=== PATIENT | male | born 1965 | race Caucasian/White ===

== ENCOUNTER 2016-08-14 21:27 | Emergency (ER) | payer OTHER ==
[2016-08-14] MEDS ORDERED: Aspirin Low Dose CHEW TAB* 81 MG PO ONE (21:43)
[2016-08-14 21:59] LABS: Hematocrit 43 % (42-52); Hemoglobin 14.7 g/dl (14.0-18.0); Mean Corpuscular HGB Conc 35 g/dl (31-36); Mean Corpuscular Hemoglobin 33 pg (27-31); Mean Corpuscular Volume 97 fL (80-94); Mean Platelet Volume 8 um3 (7.4-10.4); Red Cell Distribution Width 13 % (10.5-15); White Blood Count 9.5 10^3/ul (3.5-10.8)
[2016-08-14 22:14] LABS: Albumin 4.1 g/dL (3.2-5.2); BUN/Creatinine Ratio 9.8 (8-20); Calcium 9.5 mg/dL (8.6-10.3); EGFR African American 98.6 (>60); EGFR Non-African American 76.7 (>60); Globulin 3.8 g/dL (2-4); Potassium 3.8 mmol/L (3.5-5.0); Total Bilirubin 0.5 mg/dL (0.2-1.0); Total Protein 7.9 g/dL (6.4-8.9)
--- NOTE | 2016-08-14 22:21 | RAD ---
INDICATION: Chest pain. Atrial fibrillation. COMPARISON: May 03, 2013 TECHNIQUE: Dual energy PA and routine lateral views of the chest were obtained. REPORT: Upper normal heart size. Prominent ill-defined central pulmonary vasculature with mild perihilar opacities and diffuse prominence of the interstitial markings. Grossly clear pleural spaces. Negative for pneumothorax. IMPRESSION: Pulmonary vascular congestion and interstitial edema.
--- NOTE | 2016-08-14 22:30 | ED ---
Samanta Gerardo Matthew, scribed for Michael Quick MD on 08/14/16 at 2144 . HPI Chest Pain - HPI Summary HPI Summary: A 50 y/o male presents to the ED with intermittent mid-sternal chest pain since 15:30. The pain is rated 2/10 in severity and described as tightness. The pain started while the patient was pulling fence posts from his yard. He attempt to eat dinner and had episodes of staring off and wouldn't responded to questions, which he's had in the past. While in the EMS, the nitroglycerin improved the pain. He takes an aspirin daily. 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 He waited until now to call EMS, because he thought the pain would go away from his Hx of angina. He also had a cardiac catheterization in 2005. - History of Current Complaint Time Seen by Provider: 08/14/16 21:36 Hx Obtained From: Patient Onset/Duration: Started Hours Ago, Atraumatic, Still Present Time of Onset: 15:30 Timing: Constant Initial Severity: Moderate Current Severity: Moderate Pain Intensity: 2 Pain Scale Used: 0-10 Numeric Chest Pain Location: Mid Sternal Character: Tightness Aggravating Factor(s): Exertion Alleviating Factor(s): NTG 123 Associated Signs and Symptoms: Positive: Chest Pain - Allergy/Home Medications Allergies/Adverse Reactions: Allergies Allergy/AdvReac Type Severity Reaction Status Date / Time Latex Allergy Unknown Difficulty Verified 02/05/16 12:24 Breathing/Wheezing Home Medications: Home Medications Torsemide TAB* [Demadex*] 20 mg PO DAILY 08/14/16 [History Confirmed 08/14/16] PMH/Surg Hx/FS Hx/Imm Hx Endocrine/Hematology History: Denies: Hx Anticoagulant Therapy, Hx Diabetes, Hx Thyroid Disease Cardiovascular History: Reports: Hx Congestive Heart Failure, Hx Hypercholesterolemia Denies: Hx Hypertension, Hx Pacemaker/ICD, Hx Syncope - no hx - 1st episode, Other Cardiovascular Problems/Disorders Respiratory History: Reports: Hx Chronic Obstructive Pulmonary Disease (COPD), Hx Sleep Apnea Denies: Hx Asthma, Hx Seasonal Allergies GI History: Reports: Other GI Disorders - ventral hernia Denies: Hx Cirrhosis, Hx Crohn's Disease, Hx Gall Bladder Disease, Hx Irritable Bowel, Hx Ulcer History: Denies: Hx Kidney Infection, Hx Kidney Stones, Hx Renal Disease Musculoskeletal History: Denies: Hx Arthritis, Hx Back Problems, Hx Gout Sensory History: Reports: Hx Vision Problem - (left) eye vision loss Denies: Hx Contacts or Glasses, Hx Deafness Opthamlomology History: Reports: Hx Vision Problem - (left) eye vision loss Denies: Hx Contacts or Glasses Neurological History: Denies: Hx Dementia, Hx Headaches, Hx Migraine, Hx Seizures Psychiatric History: Denies: Hx Anxiety, Hx Depression, Hx Post Traumatic Stress Disorder, Hx Bipolar Disorder, Hx Suicide Attempt, Hx Substance Abuse - Surgical History Surgery Procedure, Year, and Place: 11/29/09 incarcerated ventral hernia - Immunization History Date of Tetanus Vaccine: 2011 Date of Influenza Vaccine: no Infectious Disease History: Denies: Hx Clostridium Difficile, Hx Hepatitis, Hx Human Immunodeficiency Virus (HIV), Hx of Known/Suspected MRSA, Hx Shingles, Hx Tuberculosis, Hx Known/ Suspected VRE, Hx Known/Suspected VRSA, History Other Infectious Disease - Family History Known Family History: Positive: Hypertension - Social History Alcohol Use: None Substance Use Type: Reports: None Smoking Status (MU): Heavy Every Day Tobacco Smoker Type: Cigarettes Amount Used/How Often: 1/2 ppd Length of Time of Smoking/Using Tobacco: 30 years Have You Smoked in the Last Year: Yes Review of Systems Constitutional: Negative Eyes: Negative ENT: Negative Positive: Chest Pain Respiratory: Negative Gastrointestinal: Negative Genitourinary: Negative Musculoskeletal: Negative Skin: Negative Neurological: Negative Psychological: Normal All Other Systems Reviewed And Are Negative: Yes Physical Exam Vital Signs On Initial Exam: Initial Vitals Temp Pulse Resp BP Pulse Ox 99.0 F 78 16 107/67 95 08/14/16 21:44 08/14/16 21:44 08/14/16 21:44 08/14/16 21:44 08/14/16 21:44 Diagnostics - Vital Signs Vital Signs Temp Pulse Resp BP Pulse Ox 08/14/16 22:20 89 08/14/16 21:44 99.0 F 78 16 107/67 95 - Laboratory Lab Results: Lab Results 08/14/16 08/14/16 08/14/16 Range/Units 21:50 21:50 21:50 WBC 9.5 (3.5-10.8) 10^3/ul RBC 4.40 (4.0-5.4) 10^6/ul Hgb 14.7 (14.0-18.0) g/dl Hct 43 (42-52) % MCV 97 H (80-94) fL MCH 33 H (27-31) pg MCHC 35 (31-36) g/dl RDW 13 (10.5-15) % Plt Count 211 (150-450) 10^3/ul MPV 8 (7.4-10.4) um3 Neut % (Auto) 46.5 (38-83) % Lymph % (Auto) 42.5 (25-47) % [place] % (Auto) 9.2 H (1-9) % Eos % (Auto) 0.9 (0-6) % Baso % (Auto) 0.9 (0-2) % Absolute Neuts (auto) 4.4 (1.5-7.7) 10^3/ul Absolute Lymphs (auto) 4.0 (1.0-4.8) 10^3/ul Absolute Monos (auto) 0.9 H (0-0.8) 10^3/ul Absolute Eos (auto) 0.1 (0-0.6) 10^3/ul Absolute Basos (auto) 0.1 (0-0.2) 10^3/ul Absolute Nucleated RBC 0 10^3/ul Nucleated RBC % 0 INR (Anticoag Therapy) (0.89-1.11) Sodium 131 L (133-145) mmol/L Potassium 3.8 (3.5-5.0) mmol/L Chloride 96 L (101-111) mmol/L Carbon Dioxide 25 (22-32) mmol/L Anion Gap 10 (2-11) mmol/L BUN 10 (6-24) mg/dL Creatinine 1.02 (0.67-1.17) mg/dL Est GFR ( Amer) 98.6 (>60) Est GFR (Non-Af Amer) 76.7 (>60) BUN/Creatinine Ratio 9.8 (8-20) Glucose 140 H (70-100) mg/dL Lactic Acid 2.5 H* (0.5-2.0) mmol/L Calcium 9.5 (8.6-10.3) mg/dL Magnesium 2.0 (1.9-2.7) mg/dL Total Bilirubin 0.50 (0.2-1.0) mg/dL AST 18 (13-39) U/L ALT 19 (7-52) U/L Alkaline Phosphatase 107 H (34-104) U/L Troponin I 0.00 (<0.04) ng/mL Total Protein 7.9 (6.4-8.9) g/dL Albumin 4.1 (3.2-5.2) g/dL Globulin 3.8 (2-4) g/dL Albumin/Globulin Ratio 1.1 (1-3) 08/14/16 Range/Units 21:50 WBC (3.5-10.8) 10^3/ul RBC (4.0-5.4) 10^6/ul Hgb (14.0-18.0) g/dl Hct (42-52) % MCV (80-94) fL MCH (27-31) pg MCHC (31-36) g/dl RDW (10.5-15) % Plt Count (150-450) 10^3/ul MPV (7.4-10.4) um3 Neut % (Auto) (38-83) % Lymph % (Auto) (25-47) % [place] % (Auto) (1-9) % Eos % (Auto) (0-6) % Baso % (Auto) (0-2) % Absolute Neuts (auto) (1.5-7.7) 10^3/ul Absolute Lymphs (auto) (1.0-4.8) 10^3/ul Absolute Monos (auto) (0-0.8) 10^3/ul Absolute Eos (auto) (0-0.6) 10^3/ul Absolute Basos (auto) (0-0.2) 10^3/ul Absolute Nucleated RBC 10^3/ul Nucleated RBC % INR (Anticoag Therapy) 0.99 (0.89-1.11) Sodium (133-145) mmol/L Potassium (3.5-5.0) mmol/L Chloride (101-111) mmol/L Carbon Dioxide (22-32) mmol/L Anion Gap (2-11) mmol/L BUN (6-24) mg/dL Creatinine (0.67-1.17) mg/dL Est GFR ( Amer) (>60) Est GFR (Non-Af Amer) (>60) BUN/Creatinine Ratio (8-20) Glucose (70-100) mg/dL Lactic Acid (0.5-2.0) mmol/L Calcium (8.6-10.3) mg/dL Magnesium (1.9-2.7) mg/dL Total Bilirubin (0.2-1.0) mg/dL AST (13-39) U/L ALT (7-52) U/L Alkaline Phosphatase (34-104) U/L Troponin I (<0.04) ng/mL Total Protein (6.4-8.9) g/dL Albumin (3.2-5.2) g/dL Globulin (2-4) g/dL Albumin/Globulin Ratio (1-3) Result Diagrams: 08/14/16 21:50 08/14/16 21:50 Lab Statement: Any lab studies that have been ordered have been reviewed, and results considered in the medical decision making process. - Radiology CXR Xray Interpretation: Positive (See Comments) - IMPRESSION: Pulmonary vascular congestion and interstitial edema. Radiology Interpretation Completed By: Radiologist Chest Pain Course/Dx - Diagnoses Provider Diagnoses: Chest pain Discharge - Discharge Plan Condition: Stable Disposition: HOME Patient Education Materials: Chest Pain (ED) Referrals: Jamel Gamez MD [Primary Care Provider] - 2 Days Additional Instructions: Please follow-up with your forest nursery supervisor in 2 days. The documentation as recorded by the Samanta love Matthew accurately reflects the service I personally performed and the decisions made by me, Michael Quick MD.
[2016-08-15 01:39] VITALS: BP 133/90
== END 2016-08-15 01:40 | disposition home or self-care (01) ==
LOC: ED 21:27
DX: R07.9 Chest pain, unspecified (principal); I50.9 Heart failure, unspecified; E78.00 Pure hypercholesterolemia, unspecified; J44.9 Chronic obstructive pulmonary disease, unspecified; F17.210 Nicotine dependence, cigarettes, uncomplicated
CPT/HCPCS: 36415; 71020; 80053; 83605; 83735; 83880; 84484; 85025; 85610; 93005; 99283

== ENCOUNTER 2017-02-16 11:26 | Day surgery (SDC) | payer OTHER ==
--- NOTE | 2017-02-08 17:51 | HP ---
CC: Dr. 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 HISTORY OF PRESENT ILLNESS: Mr. Kessler is a pleasant 51-year-old gentleman who is well known to our practice for multiple followup visits at the wound clinic. The patient has a longstanding history of chronic venous stasis ulcer on both legs for which he has been followed up by the wound clinic with multiple visits in the past couple of years. The patient presented to his primary care physician about a month ago and during examination, he was found to have a skin lesion on his abdominal wall at midline. The patient apparently had this skin lesion for quite few years now, reports occasional bleeding from especially after itching there. He has known history of itching and picking on his both lower extremities and abdominal wall due to history of eczema with occasional skin breakdown and bleeding. He notes that his skin lesion on the abdominal wall has gotten progressively bigger in the last year or so and experienced delayed healing when it bleeds. The patient was seen by Dr. Comer last week and had a skin biopsy of that lesion that unfortunately came back revealing evidence of squamous cell carcinoma. The patient notes that he works a lot outside especially in the summer-time in his garden and mowing his grass. He denies any history of melanoma or other skin lesion in the past. Given the pathology findings of squamous cell carcinoma that was well differentiated, we offered him proceeding with wide excision of the skin lesion to be done in the operating room on a later date. The patient presented to the office today to discuss surgery. He denies any significant changes since his last office visit. He notes that his lower extremity edema has been bothering him lately despite the use of diuretics and compression stockings. PAST MEDICAL HISTORY: Significant for a chronic venous stasis ulcer and bilateral lower extremity edema. He also had history of hypertension, thyroid disease, atrial fibrillation, chronic obstructive pulmonary disease, hyperlipidemia, peripheral vascular disease, and coronary artery disease. PAST SURGICAL HISTORY: Significant for cardiac catheterization as well as ventral incisional hernia repair in the remote past. The patient also explained that he was born with webbed fingers and toes for which he had a total of 12 or 13 surgeries between the age of 6 months and 10 years to separate them all. CURRENT MEDICATIONS: His medications at home include: 1. Hydrochlorothiazide 25 mg p.o. daily. 2. Singulair 10 mg p.o. daily. 3. Diltiazem 120 mg p.o. daily. 4. Hydrocortisone cream 2.5% apply to affected areas b.i.d. 5. Cartia XT 300 mg p.o. daily. 6. Atorvastatin 40 mg p.o. q.h.s. 7. Levothyroxine 150 mcg p.o. daily. 8. Torsemide 20 mg p.o. daily. 9. Terbinafine 250 mg 1 tablet once daily. 10. Latanoprost 0.005% eye drops apply to both eyes q.h.s. 11. ProAir inhaler 180 mcg once daily. 12. Valacyclovir 1 g 1 tablet t.i.d. ALLERGIES: He is allergic to LATEX. FAMILY HISTORY: He denies any family history of melanoma or other skin cancer. SOCIAL HISTORY: The patient continued to smoke about half a pack per day. He is currently working at [employer], works mostly outdoors. He lives with his girlfriend. He consumes alcohol occasionally and denies illicit drug use. REVIEW OF SYSTEMS: See HPI. Otherwise, negative. He denies any headache, dizziness, blurred vision, or double vision. No chest pain, palpitation, or shortness of breath. No cough, wheezing, sore throat. No back pain, flank pain , dysuria, hematuria, or urinary frequency. He admits to increased edema of the lower extremity, but denies any calf pain or history of DVT. No nausea, vomiting, abdominal pain, or changes in the bowel habits. He denies any fever, chills, night sweats, or recent weight loss. PHYSICAL EXAMINATION GENERAL: He is a pleasant morbidly obese gentleman, in no acute distress or discomfort today. VITAL SIGNS: Revealed blood pressure of 146/78, pulse of 84, temperature of 97.5. He weighs 350 pounds over a 5-feet 10-inch frame with a BMI of 50. HEENT: Sclerae anicteric. PERRLA. EOMs intact. Oropharynx is pink, moist with no exudate. NECK: Supple. Trachea midline. No cervical adenopathy, thyromegaly, or JVD. LUNGS: Clear to auscultation bilaterally. No rales, wheezes, or rhonchi. HEART: Regular rate and rhythm. Normal S1 and S2 without rubs, murmurs, or gallops. BACK: With normal curvature. No CVA tenderness. ABDOMEN: Soft, nontender, and nondistended. There is a small umbilical hernia noted on the examination that seems to be reducible and not incarcerated. There are old scars from prior ventral hernia repair at the lower midline. There is a skin lesion at midline alf between the umbilicus and xiphoid process that measured approximately 5 cm long x 2 to 3 cm wide with small healing scab on the other portion from prior biopsy. The area is nontender on palpation. There is no evidence of active bleeding or discharge. There is no surrounding erythema or induration. No other masses or lesions noted. RECTAL: Deferred at this time. EXTREMITIES: There is 3+ bilateral lower extremity edema noted with healing multiple chronic venous stasis ulcers at different stages of healing. There is no evidence of cellulitis, erythema, or induration noted. NEUROLOGIC: Grossly intact. IMPRESSION: A 51-year-old gentleman with biopsy-proven squamous cell carcinoma of abdominal wall. PLAN: The patient is scheduled for a wide excision of squamous cell carcinoma of the abdomen to be performed by Dr. Comer on 02/16/17. The patient was seen and examined by Dr. Comer as well. We discussed with him the rationale, indications, risks, and benefits of surgery. Risks include, but not limited to, infection, bleeding, or injury to adjacent structures. We also discussed with him getting a frozen section to assure getting a clean margin, so it would hopefully eliminate need for any reexcision in future. We also discussed with him the challenges of wound healing given his morbid obesity and possible need to wear an abdominal binder for an extended period of time until we approach complete healing of the wound. He seems to understand and wishes to proceed as outlined. SHAYLA SÁNCHEZ [id number]/[facility] #: [id number] [facility] HOSPITALKimberly
[2017-02-16] MEDS ORDERED: Bupivacaine 0.5% SDV PF* 30 ML VIAL ONE (13:09)
[2017-02-16] MEDS ORDERED: Lidocaine 1% INJ* 10 MG/ML 30 ML SDV ONE (13:09)
[2017-02-16] MEDS ORDERED: Lidocaine 1.5% EPI 1:200,000* 30 ML SDV ONE (13:26)
[2017-02-16] MEDS ORDERED: Acetaminophen TAB* 325 MG PO PRN (15:09)
[2017-02-16] MEDS ORDERED: Ibuprofen TAB* 600 MG PO PRN (15:09)
[2017-02-16 15:22] VITALS: BP 141/90
--- NOTE | 2017-02-17 05:47 | OP ---
CC: [facility]; Wound Center; Dr. Jamel Gamez OPERATIVE REPORT: DATE OF OPERATION: 02/16/17 DATE OF : 61 SURGEON: Estevan oCmer MD SLIDE FORMING MACHINE TENDER: None. ANESTHESIA: Local. PRE-OP DIAGNOSIS: Abdominal skin squamous cell carcinoma. POST-OP DIAGNOSIS: Abdominal skin squamous cell carcinoma. OPERATIVE PROCEDURE: Wide excision of squamous cell carcinoma of the abdomen with frozen section. ESTIMATED BLOOD LOSS: Minimal. FLUIDS: No fluids. SPECIMEN: Portion of abdominal skin. DESCRIPTION OF PROCEDURE: Mr. Kessler was identified in the preoperative area. He was marked, maame t to the operating room, placed on the operating table in the supine position. Patient's abdomen was prepped with Betadine and draped sterilely and the time-out was performed. Injection of lidocaine 1% with epinephrine around the proposed incision site was carried out. The in cision was measured off the lesion itself that had been biopsied previously and was consistent with s quamous cell carcinoma, was noted to be a 3 x 3 cm lesion that was in the upper midline. Elliptical area chosen was approximately 10 x 3.5 cm after injection of lidocaine along this elliptical area. Th is ellipse was carried out. The skin was removed with scalpel in its entirety. The lesion was then m arked at 12 o'clock and sent down to Pathology where it underwent frozen section. The skin was undermined laterally. Flaps were made approximately 3 cm on both sides. When we heard that there were negative margins under the frozen section, the incision was primarily closed after th e undermining with 3-0 nylon sutures in a mattress fashion. Sterile dressing was applied followed by an abdominal binder. Patient tolerated the procedure well and was transferred to the PACU in stable condition. [id number]/[facility] #: [id number]
== END 2017-02-16 15:24 | disposition home or self-care (01) ==
LOC: OR 11:26
PROVIDERS: ATTEND Surgery
DX: C44.529 Squamous cell carcinoma of skin of other part of trunk (principal); I87.8 Other specified disorders of veins; I83.012 Varicose veins of right lower extremity with ulcer of calf; I83.022 Varicose veins of left lower extremity with ulcer of calf; F17.210 Nicotine dependence, cigarettes, uncomplicated; I10 Essential (primary) hypertension; J44.9 Chronic obstructive pulmonary disease, unspecified; I48.91 Unspecified atrial fibrillation; E78.5 Hyperlipidemia, unspecified; I73.9 Peripheral vascular disease, unspecified; I25.10 Atherosclerotic heart disease of native coronary artery without angina pectoris; E07.9 Disorder of thyroid, unspecified
CPT/HCPCS: 88305; 88331; 88332; J2001

== ENCOUNTER 2017-05-08 08:30 | Observation (INO) | payer OTHER ==
[2017-05-08 09:34] LABS: EGFR Non-African American 90.6 (>60)
[2017-05-08 09:42] LABS: ABS Basophils 0 10^3/ul (0-0.2); ABS Eosinophils 0.1 10^3/ul (0-0.6); ABS Lymphocytes 1.3 10^3/ul (1.0-4.8); ABS Monocytes 0.8 10^3/ul (0-0.8); ABS Neutrophils 12.2 10^3/ul (1.5-7.7); ABS Nucleated RBC 0 10^3/ul; Eosinophil % 0.4 % (0-6); Hematocrit 41 % (42-52); Hemoglobin 14.1 g/dl (14.0-18.0); Mean Corpuscular HGB Conc 34 g/dl (31-36); Mean Corpuscular Hemoglobin 33 pg (27-31); Mean Corpuscular Volume 97 fL (80-94); Mean Platelet Volume 8 um3 (7.4-10.4); Nucleated Red Blood Cells % 0.1; Platelet Count 218 10^3/ul (150-450); Red Blood Count 4.28 10^6/ul (4.0-5.4); Red Cell Distribution Width 14 % (10.5-15); White Blood Count 14.3 10^3/ul (3.5-10.8)
[2017-05-08] MEDS ORDERED: Piperacillin/Tazobac ADVAN(*) 3.375 GM in NS 0.9% 100 ML* 100 ML IVPB ONE (09:52)
[2017-05-08 10:07] LABS: Urine Appearance Clear; Urine Blood Negative (Negative); Urine Color Yellow; Urine Ketones Negative (Negative); Urine Protein Negative (Negative); Urine Specific Gravity 1.021 (1.010-1.030); Urine Urobilinogen Negative (Negative)
[2017-05-08] MEDS ORDERED: Albuterol 2.5 MG/3 ML NEB.SOL* (0.083%) INH PRN (12:34)
[2017-05-08] MEDS ORDERED: Zosyn per Pharmacy* NOTE FOLLOW UP SCH (13:00)
[2017-05-08] MEDS ORDERED: Spiriva Inhaler DEVICE* 1 EACH DEVICE SCH (13:00)
[2017-05-08] MEDS ORDERED: Piperacillin/Tazobactam 13.5 GM IV 24 hour continuous infusion IVPB SCH ×2 (15:00)
[2017-05-08] MEDS: Heparin VIAL(*) 5000 UNITS/ML VIAL (FIVE THOUSAND) SUBCUT SCH ×2 (15:21→21:04)
[2017-05-08] MEDS ORDERED: ALPRAZolam TAB* 0.25 MG PO PRN (17:32)
[2017-05-08] MEDS: Clindamycin 600 MG IVPREMIX(* 600 MG/50 ML SDV IV SCH (18:05)
[2017-05-08] MEDS: Tiotropium CAP.INH* CAP.INH/18 MCG (USE ORDER SET !) INH SCH (18:57)
--- NOTE | 2017-05-08 20:05 | HP ---
AMENDED REPORT NOW INCLUDES COSIGNER DESIGNATION - ESIGNED BEFORE ADJUSTMENT ADMISSION HISTORY AND PHYSICAL: DATE OF ADMISSION: 05/08/17 PRIMARY CARE PROVIDER: Jamel Gamez MD ATTENDING AND ADMITTING FOR THIS ADMISSION: Nancy Johnston MD * (DICTATED BY NATALIIA MERCADO NP) CHIEF COMPLAINT: Right lower extremity wound. HISTORY OF PRESENT ILLNESS: This is a very pleasant 51-year-old male patient who has a longstanding history of right lower extremity wounds vascular in nature, has been treating with Dr. Saravia and also with the wound clinic and also had seen several dermatologists including Dr. Schroeder in the past. He has been diagnosed with eczema and psoriasis of the upper extremities, but also with vasculitis and venous stasis ulcers of the right lower extremity. The patient did have a fall-off in care and perhaps some noncompliance with his recommended regimen. Was in a Unna boot on and off, but also I think had some compliance issues with them. The patient reports having put his Unna boot on and was supposed to keep it on until ; however, the patient states that he wanted to take a shower and removed the Unna boot and when he took it off this morning, realized that the wounds on the right lower extremity looked significantly worse. He became startled by how they looked. The skin was really excoriated. He decided to come to the emergency department for evaluation because the pain had increased and the wounds became significantly worse. PAST MEDICAL HISTORY: 1. Chronic lower extremity venous stasis ulcers and bilateral lower extremity edema. 2. He also has history of atrial fibrillation. 3. Hypertension. 4. COPD. 5. Hyperlipidemia. 6. Peripheral vascular disease. 7. Coronary artery disease. 8. Obstructive sleep apnea. PAST SURGICAL HISTORY: 1. Ventral hernia repair. 2. Multiple surgeries on his fingers and toes as child for webbed fingers and toes. 3. 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 Comer. HOME MEDICATIONS: 1. Atorvastatin 40 mg daily. 2. Diltiazem 360 mg daily. 3. Levothyroxine 150 mcg daily. 4. Singulair 10 mg in the evening. 5. Prednisone 60 mg daily. 6. Torsemide 20 mg daily. ALLERGIES: He has an allergy to LATEX. FAMILY HISTORY: Significant for mother with diabetes mellitus and a sister with renal disease. SOCIAL HISTORY: The patient is a daily smoker, half a pack per day since age of 16. Also a daily consumption of alcohol of a 12-pack of beer per day. Denies any illicit drug use. He does work fulltime, works at [employer]. Lives at home with his girlfriend who is also his medical healthcare proxy, her name is Anisha Mckeon. Code status, the patient is a full code. REVIEW OF SYSTEMS: The patient denies having any fever, fatigue, or headache. No fevers or chills. No acute weight loss reported. Reports no anorexia. No nausea, vomiting, or diarrhea. No abdominal change. No changes in bowel habits. Positive cough, productive of yellow sputum intermittently. No sore throat. Reports no wheezing. No chest pain. Does state that he has a significant amount of itching to the right and left upper extremities with some open wounds and significant amount of itching on the right lower extremity. He does report having picked at his wounds and making them worse. Denies any calf pain on the contralateral side. Denies any night sweats. Denies any sick contacts. PHYSICAL EXAMINATION GENERAL: The patient is awake and alert, mildly anxious at baseline. VITAL SIGNS: Currently, temperature 97.8, pulse rate 88, respiratory rate 22, room air sat is 93%, blood pressure is 148/84. HEENT: The patient is atraumatic, normocephalic. PERRLA with nonicteric sclerae. NECK: Supple. Nontender. No JVD noted. No thyromegaly appreciated. No carotid bruit auscultated. LUNGS: Diminished throughout the lung larios. He has audible bilateral expiratory wheeze. No rales or rhonchi appreciated. CARDIOVASCULAR: S1, S2 are present. Rate and rhythm are currently regular. No murmurs, gallops, or rubs appreciated. ABDOMEN: Soft, nontender, nondistended, obese. Has an approximated surgical wound healed, has some scabbing and some rash-like maculopapular in nature appearances throughout the abdomen. Skin did not appear to be broken, rather erythematous in nature. Has positive bowel sounds in all 4 quadrants. : Deferred. MUSCULOSKELETAL: There is a significant amount of clubbing on the fingers; however, it is difficult to tell if this is true clubbing or secondary to the multiple surgeries he had for the webbing of his fingers. This is also present on his toes. He does have radial pulses intact. I was not able to palpate distal pulses though, and his pedal pulses secondary to his edema. SKIN: He has gotten multiple scabbed over wounds and some, again maculopapular rash-like lesions of the upper extremities in various stages of healing. Also some on the left extremity. On the right lower extremity from about the knee down, the skin is greatly excoriated circumferentially, almost looks burn like in quality with a significant amount of slough and some yellow exudate. Does not appear to be pus, but does appear to be draining, extremely erythematous. Again, difficulty palpating a pulse. Also has wound of the left heel. NEUROLOGIC: He is grossly intact with no focal deficits. PSYCHIATRIC: He is cooperative, anxious, but appropriate. LABORATORY DATA: WBC 14.3, RBC 4.28, hemoglobin 14.1, hematocrit 41, MCV 97, MCH 33, MCHC 34, RDW 14, platelets 218,000, neutrophils 84.9, lymphocytes 9.0, absolute neutrophils 12.2. ESR is 42. Sodium 133, potassium 4.0, chloride 98, carbon dioxide 27, BUN 15, creatinine 0.88, GFR is 90.6, glucose 202. Lactic acid 2.5. Uric acid 7.6. Calcium 9.4. Bilirubin 0.4, AST 17, ALT 19, alk phos 131. CRP 9.33. Total protein 8.2. Albumin 4.0, globulin 4.2. Urinalysis is negative for any infectious process, does show 1+ glucose. IMAGING: The patient did have venous Doppler done back in February, not at this admission. Again, he was following with Dr. Saravia. Had venous Doppler showing significant venous insufficiency. Venous insufficiency portion exam showed significant reflex in the proximal great saphenous on the left and small saphenous distally with reflex of 3.4 seconds. Vessel diameters are 0.4, 0.2 cm respectively. There was more significant reflex on the right. On the right , there is significant reflex in the great saphenous from its mid portion of the calf measuring up to 3.5 seconds and there is also significant reflex in the mid and distal small saphenous measuring up to 2.3 cm. Vessel diameters in the great saphenous measure up to 0.8 cm and in the small saphenous 0.3 cm. IMPRESSION: This is a 51-year-old male patient with a history of peripheral vascular disease, paroxysmal atrial fibrillation, hypertension, chronic obstructive pulmonary disease, and squamous cell carcinoma who presented to the emergency department with an ongoing chronic wound at the right lower extremity. Call was placed by the ED physician, Dr. Mobley to Dr. Saravia, the patient's vascular surgeon who reports that the patient at this point has failed more conservative measures and feels that inpatient admission with antibiotics and consult with Infectious Disease and wound care here in the hospital would better benefit this patient. As such, he will be admitted inpatient. DIAGNOSES: 1. Vasculitis, eczema, and vascular insufficiency. 2. History of atrial fibrillation, paroxysmal in nature. 3. History of hypertension. 4. Impaired glucose. 5. Chronic obstructive pulmonary disease and current every day smoker. 6. History of squamous cell carcinoma with excision. 7. Current history of excessive EtOH intake. PLAN: We have consulted Infectious Disease. The patient has already gotten 1 dose of Zosyn. We have consulted wound care service to care for the leg wound and also the eczematous type wounds. Of significant note is the patient had ABIs done last month, which were also impaired and his vascular surgeon is aware of this. I do not feel the need to do a Doppler again. He had one last month, which showed no clot and it just showed his current venous insufficiency , so I do not feel it is necessary to do that at this point. We will continue him on Zosyn until we receive further recommendations from Infectious Disease at this point and also recommendations from the wound care nurse. For his atrial fibrillation, his diltiazem, which is increased to 360 mg daily, which will also control his hypertension. For his impaired glucose, I have done an A1c. We will check his labs in the morning as well. For his chronic obstructive pulmonary disease, the patient is only taking Singulair and not on any nebulizers, I started him on Spiriva. He does have a significant wheeze and on albuterol every 4 hours. His history of squamous cell carcinoma is at baseline and stable at this point. For his ETOH and also for his smoking, I had a conversation with the patient about impaired wound healing with alcohol consumption and continued tobacco abuse. The patient was counseled on this. I do not think the patient will be at risk for delirium tremens, so I do not feel putting him on a WAM protocol at this point would be necessary; however, if he does show signs of any kind of withdrawal, then we will place him on WAM at this point, though I think a low dose xanax would be helpful. He has a great amount of fear about losing his job secondary to admission. For obstructive sleep apnea, the patient is on BiPAP at night. I have requested the patient to bring his BiPAP from home to use. The patient is a full code. He can have a low-sodium dinner. The patient 's significant other, Anisha Mckeon, is his healthcare proxy and decision maker. TIME SPENT: I have spent an excess of 60 minutes on this admission, face-to- face with the patient, also with Dr. Mobley and I discussed this plan of care with Dr. Nancy Johnston who is the attending on this case. The rest of the patient's course will be determined by further diagnostics, laboratories, and any other input from other providers as warranted during this admission. FULL CODE DIET: Consistent Carb NATALIIA MERCADO NP [id number]/[facility] #: [id number] MTDD
[2017-05-08] MEDS ORDERED: Acetaminophen TAB* 325 MG PO PRN (20:08)
[2017-05-08] MEDS: oxyCODONE/Acetamin 5/325 MG* TAB PO PRN (20:24)
[2017-05-08] MEDS ORDERED: Montelukast Sodium TAB* 10 MG PO SCH (21:00)
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
[2017-05-09] MEDS: Clindamycin 600 MG IVPREMIX(* 600 MG/50 ML SDV IV SCH ×2 (00:03→08:50)
[2017-05-09] MEDS: oxyCODONE/Acetamin 5/325 MG* TAB PO PRN ×2 (02:42→08:51)
[2017-05-09] MEDS: Heparin VIAL(*) 5000 UNITS/ML VIAL (FIVE THOUSAND) SUBCUT SCH ×2 (05:29→14:46)
[2017-05-09] MEDS ORDERED: Levothyroxine TAB* 150 MCG TAB PO SCH (06:00)
[2017-05-09] MEDS: Tiotropium CAP.INH* CAP.INH/18 MCG (USE ORDER SET !) INH SCH (08:23)
[2017-05-09 08:54] LABS: ABS Basophils 0.1 10^3/ul (0-0.2); ABS Eosinophils 0.1 10^3/ul (0-0.6); ABS Lymphocytes 3.1 10^3/ul (1.0-4.8); ABS Monocytes 0.7 10^3/ul (0-0.8); ABS Neutrophils 4.5 10^3/ul (1.5-7.7); ABS Nucleated RBC 0 10^3/ul; Eosinophil % 1.2 % (0-6); Hematocrit 40 % (42-52); Hemoglobin 13.4 g/dl (14.0-18.0); Lymphocyte % 36.6 % (25-47); Mean Corpuscular HGB Conc 34 g/dl (31-36); Mean Corpuscular Hemoglobin 33 pg (27-31); Mean Corpuscular Volume 97 fL (80-94); Mean Platelet Volume 8 um3 (7.4-10.4); Nucleated Red Blood Cells % 0.1; Platelet Count 193 10^3/ul (150-450); Red Cell Distribution Width 14 % (10.5-15); White Blood Count 8.6 10^3/ul (3.5-10.8)
[2017-05-09] MEDS ORDERED: Diltiazem CD CAP* 180 MG PO SCH (09:00)
[2017-05-09] MEDS ORDERED: Spiriva Inhaler DEVICE* 1 EACH DEVICE INH ONE (09:00)
[2017-05-09] MEDS ORDERED: predniSONE TAB* 20 MG PO SCH (09:00)
[2017-05-09] MEDS ORDERED: Torsemide TAB* 20 MG PO SCH (09:00)
[2017-05-09] MEDS ORDERED: Atorvastatin* 40 MG TAB PO SCH (09:00)
[2017-05-09 09:10] LABS: EGFR Non-African American 101.1 (>60)
[2017-05-09 15:34] VITALS: BP 120/50
[2017-05-09] MEDS ORDERED: Clindamycin CAP* 150 MG PO ONE (16:00)
--- NOTE | 2017-05-09 17:39 | ED ---
Morris Gerardo Angela, scribed for Javed Mobley MD on 05/08/17 at 0846 . Skin Complaint - HPI Summary HPI Summary: This pt is a 51 y/o male presenting to [facility] c/o wound on right leg. Pt reports that his wound on his right leg has now spread to his arms and abdomen. Pt additionally notes SOB and dry skin on his back. He states his right leg wound was weeping last night. Pt saw Dr. Gamez (PCP) yesterday and was given prednisone and an ointment. Pt notes that he has been to the wound clinic multiple times, the last time was 1.5 months ago. He additionally saw Dr. Comer in February 2017 for a wide excision of squamous cell CA of the abd. He was then placed on an abd binder to heal the wound. - History of Current Complaint Chief Complaint: EDExtremityLower Stated Complaint: RIGHT LEG PAIN, RED Hx Obtained From: Patient Onset/Duration: Started Weeks Ago, Still Present Skin Exposure Onset/Duration: Weeks Ago Timing: Lasting Weeks Current Severity: Severe Pain Intensity: 8 Pain Scale Used: 0-10 Numeric Skin Location: Arm - bilateral, Abdomen, Leg - right Character: Redness Aggravating Symptom(s): Nothing Alleviating Symptom(s): Nothing Associated Signs & Symptoms: Difficulty Breathing - Allergy/Home Medications Allergies/Adverse Reactions: Allergies Allergy/AdvReac Type Severity Reaction Status Date / Time MS Latex [Latex] Allergy Unknown Difficulty Verified 02/16/17 11:36 Breathing/Wheezing Home Medications: Home Medications Atorvastatin* [Lipitor 40 MG*] 40 mg PO DAILY 05/08/17 [History Confirmed ] Diltiazem CD CAP* [Cardizem CD CAP*] 360 mg PO DAILY 05/08/17 [History Confirmed 05/08/17] Terbinafine HCl [Lamisil] 250 mg PO DAILY 05/08/17 [History Confirmed 05/08/17] PMH/Surg Hx/FS Hx/Imm Hx Endocrine/Hematology History: Denies: Hx Anticoagulant Therapy, Hx Diabetes, Hx Thyroid Disease Cardiovascular History: Reports: Hx Congestive Heart Failure, Hx Hypercholesterolemia Denies: Hx Hypertension, Hx Pacemaker/ICD, Hx Syncope - no hx - 1st episode, Other Cardiovascular Problems/Disorders Respiratory History: Reports: Hx Chronic Obstructive Pulmonary Disease (COPD), Hx Sleep Apnea Denies: Hx Asthma, Hx Seasonal Allergies GI History: Reports: Other GI Disorders - ventral hernia Denies: Hx Cirrhosis, Hx Crohn's Disease, Hx Gall Bladder Disease, Hx Irritable Bowel, Hx Ulcer History: Denies: Hx Kidney Infection, Hx Kidney Stones, Hx Renal Disease Musculoskeletal History: Denies: Hx Arthritis, Hx Back Problems, Hx Gout Sensory History: Reports: Hx Vision Problem - (left) eye vision loss Denies: Hx Contacts or Glasses, Hx Deafness, Hx Hearing Aid Opthamlomology History: Reports: Hx Vision Problem - (left) eye vision loss Denies: Hx Contacts or Glasses Neurological History: Denies: Hx Dementia, Hx Headaches, Hx Migraine, Hx Seizures Psychiatric History: Denies: Hx Anxiety, Hx Depression, Hx Post Traumatic Stress Disorder, Hx Bipolar Disorder, Hx Suicide Attempt, Hx Substance Abuse - Cancer History Cancer Type, Location and Year: Squamous cell carcinoma - Surgical History Surgery Procedure, Year, and Place: 11/29/09 incarcerated ventral hernia Hx Anesthesia Reactions: No - Immunization History Date of Tetanus Vaccine: 2011 Date of Influenza Vaccine: no Infectious Disease History: No Infectious Disease History: Denies: Hx Clostridium Difficile, Hx Hepatitis, Hx Human Immunodeficiency Virus (HIV), Hx of Known/Suspected MRSA, Hx Shingles, Hx Tuberculosis, Hx Known/ Suspected VRE, Hx Known/Suspected VRSA, History Other Infectious Disease, Traveled Outside the [place] in Last 30 Days - Family History Known Family History: Positive: Hypertension - Social History Alcohol Use: None Alcohol Amount: 6 PER WEEK Substance Use Type: Reports: None Hx Tobacco Use: Yes Smoking Status (MU): Heavy Every Day Tobacco Smoker Type: Cigarettes Amount Used/How Often: 1/2 ppd Length of Time of Smoking/Using Tobacco: 30 years Have You Smoked in the Last Year: Yes Review of Systems Negative: Fever, Chills Positive: Shortness Of Breath Skin: Other - wounds on right leg, arms, and abdomen. All Other Systems Reviewed And Are Negative: Yes Physical Exam - Summary Physical Exam Summary: VITAL SIGNS: Reviewed. GENERAL: Patient is an obese male who is lying comfortable in the stretcher. HEAD AND FACE: No signs of trauma. No ecchymosis, hematomas or skull depressions. No sinus tenderness. EYES: PERRLA, EOMI x 2, No injected conjunctiva, no nystagmus. EARS: Hearing grossly intact. Ear canals and tympanic membranes are within normal limits. MOUTH: Oropharynx within normal limits. NECK: Supple, trachea is midline, no adenopathy, no JVD, no carotid bruit, no c- spine tenderness, neck with full ROM. CHEST: Symmetric, no tenderness at palpation LUNGS: Bilateral wheezing. CVS: Regular rate and rhythm, S1 and S2 present, no murmurs or gallops appreciated. ABDOMEN: Soft, non-tender. No signs of distention. No rebound no guarding, and no masses palpated. Bowel sounds are normal. EXTREMITIES: FROM in all major joints, no edema, no cyanosis or clubbing. NEURO: Alert and oriented x 3. No acute neurological deficits. Speech is normal and follows commands. SKIN: Dry and warm. Wound on right leg with some discharge. Multiple wounds on arms and abdomen. Triage Information Reviewed: Yes Vital Signs On Initial Exam: Initial Vitals Temp Pulse Resp BP Pulse Ox 97.8 F 88 22 148/84 93 05/08/17 08:31 05/08/17 08:31 05/08/17 08:31 05/08/17 08:31 05/08/17 08:31 Vital Signs Reviewed: Yes Diagnostics - Vital Signs Vital Signs Temp Pulse Resp BP Pulse Ox 05/08/17 08:31 97.8 F 88 22 148/84 93 - Laboratory Lab Results: Lab Results 05/08/17 05/08/17 05/08/17 Range/Units 09:13 09:13 09:13 WBC 14.3 H (3.5-10.8) 10^3/ul RBC 4.28 (4.0-5.4) 10^6/ul Hgb 14.1 (14.0-18.0) g/dl Hct 41 L (42-52) % MCV 97 H (80-94) fL MCH 33 H (27-31) pg MCHC 34 (31-36) g/dl RDW 14 (10.5-15) % Plt Count 218 (150-450) 10^3/ul MPV 8 (7.4-10.4) um3 Neut % (Auto) 84.9 H (38-83) % Lymph % (Auto) 9.0 L (25-47) % [place] % (Auto) 5.4 (1-9) % Eos % (Auto) 0.4 (0-6) % Baso % (Auto) 0.3 (0-2) % Absolute Neuts (auto) 12.2 H (1.5-7.7) 10^3/ul Absolute Lymphs (auto) 1.3 (1.0-4.8) 10^3/ul Absolute Monos (auto) 0.8 (0-0.8) 10^3/ul Absolute Eos (auto) 0.1 (0-0.6) 10^3/ul Absolute Basos (auto) 0 (0-0.2) 10^3/ul Absolute Nucleated RBC 0 10^3/ul Nucleated RBC % 0.1 ESR 42 H (0-20) mm/Hr Sodium 133 (133-145) mmol/L Potassium 4.0 (3.5-5.0) mmol/L Chloride 98 L (101-111) mmol/L Carbon Dioxide 27 (22-32) mmol/L Anion Gap 8 (2-11) mmol/L BUN 15 (6-24) mg/dL Creatinine 0.88 (0.67-1.17) mg/dL Est GFR ( Amer) 116.5 (>60) Est GFR (Non-Af Amer) 90.6 (>60) BUN/Creatinine Ratio 17.0 (8-20) Glucose 202 H (70-100) mg/dL Hemoglobin A1c (4.0-5.6) % Lactic Acid 2.5 H* (0.5-2.0) mmol/L Uric Acid 7.6 (4.4-7.6) mg/dL Calcium 9.4 (8.6-10.3) mg/dL Total Bilirubin 0.40 (0.2-1.0) mg/dL AST 17 (13-39) U/L ALT 19 (7-52) U/L Alkaline Phosphatase 131 H (34-104) U/L C-Reactive Protein 9.33 H (< 5.00) mg/L Total Protein 8.2 (6.4-8.9) g/dL Albumin 4.0 (3.2-5.2) g/dL Globulin 4.2 H (2-4) g/dL Albumin/Globulin Ratio 1.0 (1-3) Urine Color Urine Appearance Urine pH (5-9) Ur Specific [place] (1.010-1.030) Urine Protein (Negative) Urine Ketones (Negative) Urine Blood (Negative) Urine Nitrate (Negative) Urine Bilirubin (Negative) Urine Urobilinogen (Negative) Ur Leukocyte Esterase (Negative) Urine Glucose (Negative) 05/08/17 05/08/17 Range/Units 09:13 09:45 WBC (3.5-10.8) 10^3/ul RBC (4.0-5.4) 10^6/ul Hgb (14.0-18.0) g/dl Hct (42-52) % MCV (80-94) fL MCH (27-31) pg MCHC (31-36) g/dl RDW (10.5-15) % Plt Count (150-450) 10^3/ul MPV (7.4-10.4) um3 Neut % (Auto) (38-83) % Lymph % (Auto) (25-47) % [place] % (Auto) (1-9) % Eos % (Auto) (0-6) % Baso % (Auto) (0-2) % Absolute Neuts (auto) (1.5-7.7) 10^3/ul Absolute Lymphs (auto) (1.0-4.8) 10^3/ul Absolute Monos (auto) (0-0.8) 10^3/ul Absolute Eos (auto) (0-0.6) 10^3/ul Absolute Basos (auto) (0-0.2) 10^3/ul Absolute Nucleated RBC 10^3/ul Nucleated RBC % ESR (0-20) mm/Hr Sodium (133-145) mmol/L Potassium (3.5-5.0) mmol/L Chloride (101-111) mmol/L Carbon Dioxide (22-32) mmol/L Anion Gap (2-11) mmol/L BUN (6-24) mg/dL Creatinine (0.67-1.17) mg/dL Est GFR ( Amer) (>60) Est GFR (Non-Af Amer) (>60) BUN/Creatinine Ratio (8-20) Glucose (70-100) mg/dL Hemoglobin A1c 8.1 H (4.0-5.6) % Lactic Acid (0.5-2.0) mmol/L Uric Acid (4.4-7.6) mg/dL Calcium (8.6-10.3) mg/dL Total Bilirubin (0.2-1.0) mg/dL AST (13-39) U/L ALT (7-52) U/L Alkaline Phosphatase (34-104) U/L C-Reactive Protein (< 5.00) mg/L Total Protein (6.4-8.9) g/dL Albumin (3.2-5.2) g/dL Globulin (2-4) g/dL Albumin/Globulin Ratio (1-3) Urine Color Yellow Urine Appearance Clear Urine pH 5.0 (5-9) Ur Specific [place] 1.021 (1.010-1.030) Urine Protein Negative (Negative) Urine Ketones Negative (Negative) Urine Blood Negative (Negative) Urine Nitrate Negative (Negative) Urine Bilirubin Negative (Negative) Urine Urobilinogen Negative (Negative) Ur Leukocyte Esterase Negative (Negative) Urine Glucose 1+(50 mg/dl) H (Negative) Result Diagrams: 05/09/17 08:47 05/09/17 08:47 Lab Statement: Any lab studies that have been ordered have been reviewed, and results considered in the medical decision making process. Course/Dx - Course Course Of Treatment: This pt is a 51 y/o male presenting to [facility] c/o wound on right leg. Pt reports that his wound on his right leg has now spread to his arms and abdomen. Pt additionally notes SOB and dry skin on his back. He states his right leg wound was weeping last night. Pt saw Dr. Gamez (PCP) yesterday and was given prednisone and an ointment. Pt notes that he has been to the wound clinic multiple times, the last time was 1.5 months ago. He additionally saw Dr. Comer in February 2017 for a wide excision of squamous cell CA of the abd. He was then placed on an abd binder to heal the wound. Test results show WBC of 14.3 with a left shift, lactic acid of 2.5, CRP of 9.33. UA is negative for UTI. I believe the pt has a wound infection and cellulitis, therefore the pt was placed in Zosyn. At this point I discussed my physical exam findings and results with Dr. Johnston, hospitalist, who accepted the pt for admission. Pt is hemodynamically stable, alert and oriented x3. - Differential Diagnoses - Skin Complaint Differential Diagnoses: Cellulitis, Drug Rash, Eczema, Impetigo, Poison Natasha, Poison [place] - Diagnoses Provider Diagnoses: Wound infection, Cellulitis - Physician Notifications Discussed Care Of Patient With: Nancy Johnston Time Discussed With Above Provider: 10:25 Instructed by Provider To: Other - I discussed pt's case with Dr. Johnston, hospitalist, who has agreed to admit the pt. Discharge - Discharge Plan Condition: Stable Disposition: ADMITTED TO [facility] documentation as recorded by the Morris love Angela accurately reflects the service I personally performed and the decisions made by me, Javed Mobley MD.
--- NOTE | 2017-05-10 13:15 | DS ---
CC: Dr. Gamez * DISCHARGE SUMMARY: DATE OF ADMISSION: DATE OF DISCHARGE: 05/09/17 HISTORY OF PRESENT ILLNESS: This 51-year-old man presented with wound in his right leg. He had taken off his Unna boot 2 days before admission. He poured hydrogen peroxide on his leg. He thought his leg looked worse and the skin was excoriated. The rest of history and physical was detailed in dictated admission note. Dr. Beaver consulted on the patient and recommended he be given clindamycin. The wound care nurse came up. I, too, examined the patient at the same time as the wound care nurse. His right lower leg was minimally erythematous, surrounding multiple brown areas of dried skin with some minor cracking. The wound care nurse felt that mainly he needed moisturizing of his skin, elevation, and compression. The patient has a compression device at home, which he knows how to use. He understands elevation. He appears to be a fairly compliant patient. I seconded Dr. Beaver's recommendation for stopping the prednisone and emphasized this to the patient. Perhaps, the future indication is prednisone might be useful, but I do not think it would contribute to his healing at this point. He was continued on all of his usual medications. FINAL DIAGNOSES: 1. Chronic venous stasis ulcers, right lower extremity. 2. History of atrial fibrillation. 3. Hypertension. 4. Chronic obstructive pulmonary disease. 5. Hyperlipidemia. 6. Peripheral vascular disease. 7. Coronary artery disease. 8. Obstructive sleep apnea. DISCHARGE MEDICATIONS: 1. Clindamycin 300 mg t.i.d. for 6 more days. 2. Levothyroxine 150 mcg daily. 3. Montelukast 10 mg h.s. 4. Torsemide 20 mg daily. 5. Terbinafine 250 mg daily. 6. Atorvastatin 40 mg daily. 7. Diltiazem CD 360 mg daily. [id number]/[facility] #: [id number] [facility]
== END 2017-05-09 17:05 | disposition home or self-care (01) ==
LOC: ED 08:30 → MED 12:28 → UNDOADMOB 12:28 → INTOOBSV 12:28 → OBSVTOIN 12:28 → INTOOBSV 05-09 16:04 → UNDODISOB 05-09 17:05
PROVIDERS: ADMIT Internal Medicine; ATTEND Internal Medicine
DX: T24.401A Corrosion of unspecified degree of unspecified site of right lower limb, except ankle and foot, initial encounter (principal); L03.115 Cellulitis of right lower limb; E66.01 Morbid (severe) obesity due to excess calories; I87.2 Venous insufficiency (chronic) (peripheral); Z87.09 Personal history of other diseases of the respiratory system; R06.02 Shortness of breath; Z86.79 Personal history of other diseases of the circulatory system; F17.210 Nicotine dependence, cigarettes, uncomplicated; Y92.9 Unspecified place or not applicable; Z85.828 Personal history of other malignant neoplasm of skin; I10 Essential (primary) hypertension; I48.91 Unspecified atrial fibrillation; J44.9 Chronic obstructive pulmonary disease, unspecified; E78.5 Hyperlipidemia, unspecified; I73.9 Peripheral vascular disease, unspecified; I25.10 Atherosclerotic heart disease of native coronary artery without angina pectoris; Z98.61 Coronary angioplasty status; Z98.890 Other specified postprocedural states
CPT/HCPCS: 36415; 80053; 81003; 83036; 83605; 84550; 85025; 85652; 86140; 87040; 87070; 87077; 87184; 87186; 87205; 94660; 94760; 96365; 99283; A9270-GY; G0378; J1644; J2543

== ENCOUNTER 2018-02-17 13:17 | Observation (INO) | payer OTHER ==
[2018-02-17] MEDS ORDERED: Albuterol/Ipratropium NEB.SOL* Albuterol 2.5 MG/Ipratropium 0.5 MG 3 ML ONE (13:33)
[2018-02-17] MEDS ORDERED: NS 0.9% 1000 ML* 1,000 ML IV ONE (13:34)
[2018-02-17] MEDS ORDERED: Magnesium Sulfate 2 GM IV* 2 GM/50 ML BAG IVPB ONE (13:36)
[2018-02-17] MEDS ORDERED: methylPREDNISolone 125 MG* 2 ML VIAL IV ONE (13:36)
[2018-02-17] MEDS ORDERED: Albuterol/Ipratropium NEB.SOL* Albuterol 2.5 MG/Ipratropium 0.5 MG 3 ML INH ONE (13:36)
[2018-02-17 14:04] LABS: ABS Basophils 0 10^3/ul (0-0.2); ABS Eosinophils 0 10^3/ul (0-0.6); ABS Lymphocytes 1.2 10^3/ul (1.0-4.8); ABS Monocytes 0.6 10^3/ul (0-0.8); ABS Neutrophils 8.2 10^3/ul (1.5-7.7); ABS Nucleated RBC 0 10^3/ul; Eosinophil % 0.1 % (0-6); Hematocrit 39 % (42-52); Lymphocyte % 11.7 % (25-47); Mean Corpuscular HGB Conc 33 g/dl (31-36); Mean Corpuscular Hemoglobin 33 pg (27-31); Mean Corpuscular Volume 99 fL (80-94); Mean Platelet Volume 7.8 fL (7.4-10.4); Nucleated Red Blood Cells % 0; Platelet Count 247 10^3/ul (150-450); Red Blood Count 3.95 10^6/ul (4.00-5.40); Red Cell Distribution Width 14 % (10.5-15)
[2018-02-17 14:25] LABS: EGFR Non-African American 113.8 (>60)
--- NOTE | 2018-02-17 14:57 | ED ---
Shortness of Breath - HPI Summary HPI Summary: Pt is a 52 y/o male brought in by EMS who presents to the ED c/o SOB. He woke up this morning feeling very SOB and hyperventiliating. He used both his Albuterol and Symbicort inhaler, and took Prednisone. He was prescribed a 10- day Prednisone treatment, and has 2 more days left. Pt states he feels distended , and has decreased appetite due to the bloated sensation. He states the nebulizer treatment given by EMS greatly improved his symptoms. Pt denies any CP , diaphoresis, fever, chills, abdominal pain, neck pain, arm pain, or back pain. PMHx COPD, DM, HTN, psoriasis, hypothyroidism, AFib, and sleep apnea. Pt smokes ppd and drinks a 6 pack of beer per day. He takes daily ASA, and is not on oxygen at home. - History of Current Complaint Time Seen by Provider: 02/17/18 13:17 Hx Obtained From: Patient Onset/Duration: Sudden Onset, Lasting Hours - This morning, Still Present Timing: Constant Dyspnea At: Rest Alleviating Factors: EMS Tx - Duoneb Related History: Obesity - Allergy/Home Medications Allergies/Adverse Reactions: Allergies Allergy/AdvReac Type Severity Reaction Status Date / Time latex Allergy Difficulty Verified 02/17/18 13:33 Breathing Home Medications: Home Medications Budesonide/Formote 160/4.5(NF) [Symbicort 160/4.5 (NF)] 2 puff INH BID 02/17/18 [History Confirmed 02/17/18] Glyburide/Metformin HCl [Glyburide-Metformin 5-500 mg] 1 tab PO DAILY 02/17/18 [ History Confirmed 02/17/18] predniSONE TAB* [Deltasone 20 MG TAB*] 1 tab PO DAILY 02/17/18 [History Confirmed 02/17/18] PMH/Surg Hx/FS Hx/Imm Hx Endocrine/Hematology History: Reports: Hx Diabetes, Hx Thyroid Disease - Hypothyroid Denies: Hx Anticoagulant Therapy Cardiovascular History: Reports: Hx Atrial Fibrillation, Hx Congestive Heart Failure, Hx Hypercholesterolemia Denies: Hx Hypertension, Hx Pacemaker/ICD, Hx Syncope - no hx - 1st episode, Other Cardiovascular Problems/Disorders Respiratory History: Reports: Hx Chronic Obstructive Pulmonary Disease (COPD), Hx Sleep Apnea Denies: Hx Asthma, Hx Seasonal Allergies GI History: Reports: Other GI Disorders - ventral hernia Denies: Hx Cirrhosis, Hx Crohn's Disease, Hx Gall Bladder Disease, Hx Irritable Bowel, Hx Ulcer History: Denies: Hx Kidney Infection, Hx Kidney Stones, Hx Renal Disease Musculoskeletal History: Denies: Hx Arthritis, Hx Back Problems, Hx Gout Sensory History: Reports: Hx Vision Problem - (left) eye vision loss Denies: Hx Contacts or Glasses, Hx Deafness, Hx Hearing Aid Opthamlomology History: Reports: Hx Vision Problem - (left) eye vision loss Denies: Hx Contacts or Glasses Neurological History: Denies: Hx Dementia, Hx Headaches, Hx Migraine, Hx Seizures Psychiatric History: Denies: Hx Anxiety, Hx Depression, Hx Post Traumatic Stress Disorder, Hx Bipolar Disorder, Hx Suicide Attempt, Hx Substance Abuse - Cancer History Cancer Type, Location and Year: Squamous cell carcinoma - Surgical History Surgery Procedure, Year, and Place: 11/29/09 incarcerated ventral hernia Hx Anesthesia Reactions: No - Immunization History Date of Tetanus Vaccine: 2011 Date of Influenza Vaccine: no Infectious Disease History: No Infectious Disease History: Denies: Hx Clostridium Difficile, Hx Hepatitis, Hx Human Immunodeficiency Virus (HIV), Hx of Known/Suspected MRSA, Hx Shingles, Hx Tuberculosis, Hx Known/ Suspected VRE, Hx Known/Suspected VRSA, History Other Infectious Disease, Traveled Outside the [place] in Last 30 Days - Family History Known Family History: Positive: Hypertension - Social History Alcohol Use: Daily Alcohol Amount: 6 PER WEEK Hx Substance Use: No Substance Use Type: Reports: None Hx Tobacco Use: Yes Smoking Status (MU): Heavy Every Day Tobacco Smoker Type: Cigarettes Amount Used/How Often: 1/2 ppd Length of Time of Smoking/Using Tobacco: 30 years Have You Smoked in the Last Year: Yes Review of Systems Negative: Fever, Chills Negative: Chest Pain Positive: Shortness Of Breath Positive: Other - distended, decreased appetite. Negative: Abdominal Pain Negative: Myalgia - neck, arm, back pain All Other Systems Reviewed And Are Negative: Yes Physical Exam - Summary Physical Exam Summary: Appearance: Well appearing, no pain distress, morbid obesity Skin: warm, dry, reflects adequate perfusion, psoriatic changes to both legs and low back, stasis dermatitis bilateral legs Head/face: normal Eyes: EOMI, KAYY ENT: mucous membranes moist Neck: supple, non-tender Respiratory: diffuse wheezes, breath sounds present, moderate respiratory distress Cardiovascular: irregularly irregular rhythm, pulses symmetrical, clubbing of fingers Abdomen: non-tender, soft, midline surgical scar Bowel Sounds: present Musculoskeletal: normal, strength/ROM intact Neuro: normal, sensory motor intact, A&Ox3 Triage Information Reviewed: Yes Vital Signs On Initial Exam: Initial Vitals Temp Pulse Resp BP Pulse Ox 96.0 F 88 26 168/101 93 02/17/18 13:23 02/17/18 13:23 02/17/18 13:23 02/17/18 13:23 02/17/18 13:23 Vital Signs Reviewed: Yes Diagnostics - Vital Signs Vital Signs Temp Pulse Resp BP Pulse Ox 02/17/18 13:48 89 24 92 02/17/18 13:28 85 02/17/18 13:23 96.0 F 88 26 168/101 93 - Laboratory Lab Results: Lab Results 02/17/18 02/17/18 02/17/18 Range/Units 13:45 13:51 13:51 WBC 10.0 (3.5-10.8) 10^3/ul RBC 3.95 L (4.00-5.40) 10^6/ul Hgb 13.0 L (14.0-18.0) g/dl Hct 39 L (42-52) % MCV 99 H (80-94) fL MCH 33 H (27-31) pg MCHC 33 (31-36) g/dl RDW 14 (10.5-15) % Plt Count 247 (150-450) 10^3/ul MPV 7.8 (7.4-10.4) fL Neut % (Auto) 81.7 (38-83) % Lymph % (Auto) 11.7 L (25-47) % [place] % (Auto) 6.2 (0-7) % Eos % (Auto) 0.1 (0-6) % Baso % (Auto) 0.3 (0-2) % Absolute Neuts (auto) 8.2 H (1.5-7.7) 10^3/ul Absolute Lymphs (auto) 1.2 (1.0-4.8) 10^3/ul Absolute Monos (auto) 0.6 (0-0.8) 10^3/ul Absolute Eos (auto) 0 (0-0.6) 10^3/ul Absolute Basos (auto) 0 (0-0.2) 10^3/ul Absolute Nucleated RBC 0 10^3/ul Nucleated RBC % 0 INR (Anticoag Therapy) (0.77-1.02) ABG pH 7.40 (7.35-7.45) ABG pCO2 44 (35-45) mmHg ABG pO2 74 L (80-100) mmHg ABG HCO3 26.3 (19-31) mmol/L ABG O2 Saturation 96.1 (95-98) % ABG Base Excess 2.0 (-2.0-2.0) Sodium (135-145) mmol/L Potassium (3.5-5.0) mmol/L Chloride (101-111) mmol/L Carbon Dioxide (22-32) mmol/L Anion Gap (2-11) mmol/L BUN (6-24) mg/dL Creatinine (0.67-1.17) mg/dL Est GFR ( Amer) (>60) Est GFR (Non-Af Amer) (>60) BUN/Creatinine Ratio (8-20) Glucose (70-100) mg/dL Lactic Acid 2.5 H* (0.5-2.0) mmol/L Calcium (8.6-10.3) mg/dL Total Bilirubin (0.2-1.0) mg/dL AST (13-39) U/L ALT (7-52) U/L Alkaline Phosphatase (34-104) U/L Troponin I (<0.04) ng/mL C-Reactive Protein (<8.01) mg/L B-Natriuretic Peptide (<=100) pg/mL Total Protein (6.4-8.9) g/dL Albumin (3.2-5.2) g/dL Globulin (2-4) g/dL Albumin/Globulin Ratio (1-3) 02/17/18 02/17/18 02/17/18 Range/Units 13:51 13:51 13:52 WBC (3.5-10.8) 10^3/ul RBC (4.00-5.40) 10^6/ul Hgb (14.0-18.0) g/dl Hct (42-52) % MCV (80-94) fL MCH (27-31) pg MCHC (31-36) g/dl RDW (10.5-15) % Plt Count (150-450) 10^3/ul MPV (7.4-10.4) fL Neut % (Auto) (38-83) % Lymph % (Auto) (25-47) % [place] % (Auto) (0-7) % Eos % (Auto) (0-6) % Baso % (Auto) (0-2) % Absolute Neuts (auto) (1.5-7.7) 10^3/ul Absolute Lymphs (auto) (1.0-4.8) 10^3/ul Absolute Monos (auto) (0-0.8) 10^3/ul Absolute Eos (auto) (0-0.6) 10^3/ul Absolute Basos (auto) (0-0.2) 10^3/ul Absolute Nucleated RBC 10^3/ul Nucleated RBC % INR (Anticoag Therapy) 1.00 (0.77-1.02) ABG pH (7.35-7.45) ABG pCO2 (35-45) mmHg ABG pO2 (80-100) mmHg ABG HCO3 (19-31) mmol/L ABG O2 Saturation (95-98) % ABG Base Excess (-2.0-2.0) Sodium 136 (135-145) mmol/L Potassium 4.7 (3.5-5.0) mmol/L Chloride 102 (101-111) mmol/L Carbon Dioxide 29 (22-32) mmol/L Anion Gap 5 (2-11) mmol/L BUN 13 (6-24) mg/dL Creatinine 0.72 (0.67-1.17) mg/dL Est GFR ( Amer) 137.7 (>60) Est GFR (Non-Af Amer) 113.8 (>60) BUN/Creatinine Ratio 18.1 (8-20) Glucose 179 H (70-100) mg/dL Lactic Acid (0.5-2.0) mmol/L Calcium 9.1 (8.6-10.3) mg/dL Total Bilirubin 0.50 (0.2-1.0) mg/dL AST 32 (13-39) U/L ALT 50 (7-52) U/L Alkaline Phosphatase 108 H (34-104) U/L Troponin I 0.00 (<0.04) ng/mL C-Reactive Protein 4.20 (<8.01) mg/L B-Natriuretic Peptide 148 H (<=100) pg/mL Total Protein 7.7 (6.4-8.9) g/dL Albumin 3.7 (3.2-5.2) g/dL Globulin 4.0 (2-4) g/dL Albumin/Globulin Ratio 0.9 L (1-3) Result Diagrams: 02/17/18 13:51 02/17/18 13:52 Lab Statement: Any lab studies that have been ordered have been reviewed, and results considered in the medical decision making process. - Radiology CXR Radiology Interpretation Completed By: Radiologist - PULMONARY INTERSTITIAL EDEMA. HYPERINFLATION. ED physician reviewed radiology report. - CT Chest/Thorax CTA CT Interpretation Completed By: Radiologist - 1. NO PULMONARY ARTERIAL FILLING DEFECT TO SUGGEST PULMONARY EMBOLISM. 2. SMALL BILATERAL PLEURAL EFFUSIONS WITH MINIMAL BIBASILAR ATELECTASIS. 3. MILD FIBROTIC CHANGES. 4. MEDIASTINAL LYMPHADENOPATHY. 5. PERIBRONCHIAL THICKENING. ED physician reviewed radiology report. - EKG 13:37 Cardiac Rate: Other Rate - AFib - 86 bpm EKG Rhythm: Atrial Fibrillation ST Segment: Normal Summary of EKG Findings: Nl axis, nl interval Re-Evaluation - Re-Evaluation First Eval Re-Evaluation Time: 14:50 Change: Unchanged Comment: Pt states he wants to go home, even though he has no oxygen at home. He was then walked, and his o2 sat went down to 79%. Pt now agrees to be admitted. Course/Dx - Course Course Of Treatment: Patient with a history of COPD presents with hypoxia, difficulty breathing and diffuse wheezing. X-rays negative for any infiltrate but there is possibility of mild interstitial edema. BNP is in the 100s. He was improving with breathing treatments but still required oxygen. The patient wanted to be discharged home however on walking trial he had desaturation down to 79% and extreme dyspnea. A CT of his chest for possible pulmonary embolism was pending at time of disposition. He was started on anticoagulant for new a fib. Hospitalist evaluated and will admit. - Diagnoses Differential Diagnosis/HQI/PQRI: Positive: Asthma, Bronchitis, CHF, COPD Exacerbation, Pneumonia, Pneumothorax, Pulmonary Embolism, Pulmonary Edema Provider Diagnoses: COPD (chronic obstructive pulmonary disease), CHF exacerbation, Atrial fibrillation, Hypoxia - Physician Notifications Discussed Care of Patient With: Maddison Riddle Time Discussed With Above Provider: 15:04 Instructed by Provider To: Admit As Inpatient - Dr. Riddle accepts pt for admission. - Critical Care Time Critical Care Time: 30-74 min - Critical care time is exclusive of separately billable procedures Discharge - Sign-Out/Discharge Documenting (check all that apply): Patient Departure - Admit - Discharge Plan Condition: Guarded Disposition: ADMITTED TO [facility] - Billing Disposition and Condition Condition: GUARDED Disposition: Admitted to [facility] - Attestation Statements Document Initiated by Scribe: Yes Documenting Scribe: Muna Addison Provider For Whom Scribe is Documenting (Include Credential): Rex Everett MD Scribe Attestation: Muna Gerardo, scribed for Rex Everett MD on 02/17/18 at 1702. Scribe Documentation Reviewed: Yes Provider Attestation: The documentation as recorded by the Muna love accurately reflects the service I personally performed and the decisions made by Rex donovan MD
[2018-02-17] MEDS ORDERED: Furosemide IV* 10 MG/ML 10 ML VIAL (100 MG) IV ONE (15:02)
[2018-02-17] MEDS ORDERED: Azithromycin IV(*) 500 MG in NS 0.9% 250 ML* 250 ML IVPB ONE (15:03)
[2018-02-17] MEDS ORDERED: Apixaban* 5 MG TAB PO ONE (15:05)
[2018-02-17] MEDS ORDERED: Iodixanol* (CONTRAST) 320 MG/ML 100 ML SDV IV ONE (15:16)
[2018-02-17] MEDS ORDERED: cefTRIAXone VIAL(*) 1,000 MG VIAL IVPB ONE (15:37)
[2018-02-17] MEDS ORDERED: Dextrose 50% Syringe 50 ML* 25 GM/50 ML SYRINGE IV PUSH PRN (15:39)
[2018-02-17] MEDS ORDERED: cefTRIAXone* 1 GM in NS 0.9% 50 ML BAG IVPB SCH (16:00)
[2018-02-17] MEDS ORDERED: Thiamine IV* 100 MG/ML 2 ML VIAL IM ONE (16:58)
[2018-02-17] MEDS ORDERED: Acetaminophen TAB* 325 MG PO PRN (16:58)
[2018-02-17] MEDS ORDERED: LORazepam TAB(*) 1 MG PO SCH (17:00)
[2018-02-17] MEDS ORDERED: Nicotine Inhaler* 10 MG AMP INH PRN (17:09)
[2018-02-17] MEDS ORDERED: Nicotine GUM* 2 MG PO PRN (17:09)
[2018-02-17] MEDS ORDERED: Mouth Piece, Nicotine* 1 EACH CARTRIDGE INH ONE (18:00)
[2018-02-17] MEDS: Folic Acid TAB* 1 MG PO SCH (18:35)
[2018-02-17] MEDS: Multivitamins/Minerals TAB PO SCH (18:35)
[2018-02-17] MEDS: Insulin LISPRO* 1 UNITS UNIT SUBCUT SCH ×2 (18:35→21:29)
[2018-02-17] MEDS: NS 0.9% 1000 ML* 1,000 ML IV SCH (19:13)
[2018-02-17] MEDS: Albuterol 2.5 MG/3 ML NEB.SOL* (0.083%) INH SCH ×2 (20:04→23:45)
[2018-02-17] MEDS: Mometasone/Formoter 200/5 MDI INH SCH (20:11)
[2018-02-17] MEDS ORDERED: Montelukast Sodium TAB* 10 MG PO SCH (21:00)
[2018-02-17] MEDS: methylPREDNISolone SOD 40 MG* 1 ML VIAL IV SCH (21:33)
--- NOTE | 2018-02-17 22:06 | HP ---
CC: Dr. Gamez * HISTORY AND PHYSICAL: DATE OF ADMISSION: 02/17/18 TIME OF EVALUATION: 3:30 p.m. PRIMARY CARE PROVIDER: Dr. Gamez. CHIEF COMPLAINT: Shortness of breath. HISTORY OF PRESENT ILLNESS: Mr. Kessler is a 52-year-old male with a past medical history of COPD, hypertension, hyperlipidemia, peripheral vascular disease, coronary artery disease, obstructive sleep apnea, atrial fibrillation, bilateral lower extremity lymphedema, morbid obesity with a BMI of 50 that presented to the emergency room with complaint of shortness of breath. The patient states that he became short of breath more than a week ago. He was seen by Gwen Luna at Dr. Gamez's office and was prescribed a nebulizer and prednisone taper. He states that he was feeling better. He went to spend the weekend at [place] with his significant other. They had to return early yesterday because his significant other had developed some redness on her hip and he spent the night in the emergency room with her. They went home and he woke up earlier today feeling severely short of breath with a feeling that he could not catch his breath or take a deeper breath. Initially, the patient had oxygen saturation of 87% on room air in the emergency room and he did not want to stay in the hospital. Ambulation was attempted in the emergency room and the patient became severely short of breath with oxygen saturation of 79% on room air. At that point, he realized he would not be able to manage at home and agreed with admission. His major concern at this point is that he will lose his job as he states he was already "written up " for losing work days due to health issues. The patient denies fever, chills, chest pain, palpitations. He is having cough more frequently, but does not think the amount of secretions have changed. PAST MEDICAL HISTORY: 1. Atrial fibrillation. 2. Hypertension. 3. COPD with current tobacco abuse. 4. Hyperlipidemia. 5. Peripheral vascular disease. 6. Chronic lymphedema. 7. Coronary artery disease. 8. Obstructive sleep apnea. 9. Type 2 diabetes. 10. Morbid obesity with BMI of 50. PAST SURGICAL HISTORY: 1. Ventral hernia repair. 2. Multiple surgeries on fingers and toes for webbed fingers and toes. 3. 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 MEDICATION LIST: 1. Atorvastatin 40 mg p.o. daily. 2. Symbicort 2 puffs inhaled b.i.d. 3. Cardizem CD 360 mg p.o. daily. 4. Glyburide/metformin 5/500 mg 1 tablet p.o. daily. 5. Hydroxyzine 50 mg p.o. q.i.d. as needed for itching. 6. Levothyroxine 150 mcg p.o. daily. 7. Montelukast 10 mg p.o. at bedtime. 8. Prednisone 20 mg p.o. daily as part of the taper that had been prescribed by his primary care. 9. Terbinafine 250 mg p.o. daily. 10. Torsemide 10 mg p.o. daily. ALLERGIES: To LATEX. FAMILY HISTORY: Mother had diabetes. Sister had renal disease. SOCIAL HISTORY: The patient has been a smoker since age 14 up to 1 pack per day and he states that now he smokes half a pack per day. He also drinks beer daily. He denies any illicit drug use. He works full-time at [employer]. Surrogate decision maker is his girlfriend, Anisha Mckeon, phone number is [phone]. REVIEW OF SYSTEMS: A 14-point review of systems was performed and all the pertinent negative and positive findings are in the HPI. PHYSICAL EXAMINATION GENERAL: The patient is a morbid obese middle-aged gentleman with " blue bloater" appearance, sitting in the ED stretcher, in no acute distress, but appears to be uncomfortable. VITAL SIGNS: Temperature 98.7, heart rate is 84, respiratory rate is 16, oxygen saturation 91% on 4 L, blood pressure 141/87. HEENT: Pupils are equal. Moist mucous membranes. The patient has a large neck. CHEST: Breath sounds bilaterally decreased with scattered wheeze. CVS: Normal S1, S2. Irregularly irregular. ABDOMEN: Morbidly obese. Bowel sounds are present. EXTREMITIES: The patient has bilateral lower extremity edema with chronic lymphedema and chronic skin lesions with keratosis and discoloration. NEURO: Alert, awake, oriented x3. Able to move all 4 extremities. Please note that his body habitus limits his physical examination. LABORATORY AND IMAGING DATA: The patient had a CBC that showed a WBC of 10, hemoglobin of 13, hematocrit of 39 with an MCV of 99, MCH of 33, platelets 247. INR is 1. ABG showed a pH of 7.4, pCO2 of 44, pO2 of 74, bicarb of 26. Chemistry showed a sodium of 136, potassium 4.7, chloride of 102, bicarb of 29, BUN of 13, creatinine of 0.7, glucose of 179. Lactic acid 2.5. Calcium of 9.1. LFTs were normal except for alk phos of 108. Chest x-ray showed pulmonary interstitial edema and hyperinflation. EKG showed atrial fibrillation, 86 beats per minute with no ST-T changes. No significant changes when compared to his prior EKG from February 2017. CTA of the chest showed no pulmonary arterial filling defect to suggest pulmonary embolism. Only small bilateral pleural effusions with minimal bibasilar atelectasis, mild fibrotic changes, mediastinal lymphadenopathy, and peribronchial thickening. ASSESSMENT AND PLAN: Mr. Kessler is a 52-year-old male with a past medical history of COPD, tobacco abuse, hypertension, hyperlipidemia, type 2 diabetes, peripheral vascular disease, coronary artery disease, obstructive sleep apnea that presented to the emergency room with complaints of dyspnea. 1. Acute hypoxemic respiratory failure. Suspect this is multifactorial in the setting of COPD with exacerbation, possible congestive heart failure. The patient will be admitted as observation to the telemetry floor. We are going to check serial troponins to rule out acute coronary syndrome. An echocardiogram will also be ordered to assess his RV and LV function in the setting of COPD with probable pulmonary hypertension and atrial fibrillation. At this point, the patient requires 4 L of supplemental oxygen and he may need it when he is discharged home. 2. Acute chronic obstructive pulmonary disease exacerbation secondary to bronchitis. The patient will be started on ceftriaxone, Zithromax. Will be continued on steroids and bronchodilators. 3. Congestive heart failure. Suspect the patient has at least right ventricular failure. Echocardiogram is ordered as above and he received furosemide in the emergency room and we are going to continue torsemide. 4. Atrial fibrillation. The patient used to be on Pradaxa in the past, but he is unsure why it was discontinued. He tells me that he went to see his primary care and was told that since his atrial fibrillation was asymptomatic that he did not need medications anymore. So, multiple were discontinued and at this point, he is taking just Cardizem, but going back on his records, I can see that in 2012, he was on Tikosyn and Pradaxa. His CHADS2-VASc score is 3 and we discussed the possibility of resuming anticoagulation, but he is reluctant at this time. He received 1 dose of Eliquis in the emergency room and there was concern for possible PE. At this point, the patient wants to think more about anticoagulation. He understands the risk of stroke even if he is asymptomatic from AFib point of view. Further conversation should be held to encourage the patient to be on anticoagulation as his CHADS2-VASc predicts 3.25% per year risk of stroke. 5. Type 2 diabetes. I am going to hold his glyburide and metformin for now and he will have fingersticks with lispro insulin sliding scale. We are going to check hemoglobin A1c level. 6. Lactic acidosis. The patient is not septic at this time. His mild lactic acidosis is secondary to metformin use and we are going to trend his lactic acid levels. 7. Tobacco abuse. The patient was advised about quitting, but he is not ready to do it at this time. He is going to receive nicotine supplementation while in the hospital. 8. Alcohol use. The patient will be placed on WAM protocol. 9. DVT prophylaxis: The patient has a score of 4 on the DVT Prophylaxis Risk Assessment Guide and he will be started on subcutaneous heparin with the next dose starting 12 hours after his Eliquis dose. 10. Obstructive sleep apnea. We will continue CPAP. 11. Code status is full. TIME SPENT: Approximately 55 minutes were spent with patient interview, medical records review, physical examination to complete this admission; more than half of this time was spent [id number] with the patient and coordination of care. [id number]/[facility] #: [id number] YOBANI
[2018-02-18] MEDS: methylPREDNISolone SOD 40 MG* 1 ML VIAL IV SCH ×2 (05:03→13:37)
[2018-02-18] MEDS: Heparin VIAL(*) 5000 UNITS/ML VIAL (FIVE THOUSAND) SUBCUT SCH ×2 (05:04→13:37)
[2018-02-18] MEDS ORDERED: Levothyroxine TAB* 150 MCG TAB PO SCH (06:00)
[2018-02-18 06:24] LABS: ABS Basophils 0 10^3/ul (0-0.2); ABS Eosinophils 0 10^3/ul (0-0.6); ABS Lymphocytes 0.8 10^3/ul (1.0-4.8); ABS Monocytes 0.3 10^3/ul (0-0.8); ABS Neutrophils 6.5 10^3/ul (1.5-7.7); ABS Nucleated RBC 0 10^3/ul; Eosinophil % 0 % (0-6); Hematocrit 37 % (42-52); Hemoglobin 12.3 g/dl (14.0-18.0); Lymphocyte % 10.9 % (25-47); Mean Corpuscular HGB Conc 33 g/dl (31-36); Mean Corpuscular Hemoglobin 33 pg (27-31); Mean Corpuscular Volume 99 fL (80-94); Mean Platelet Volume 8.1 fL (7.4-10.4); Nucleated Red Blood Cells % 0; Platelet Count 219 10^3/ul (150-450); Red Blood Count 3.75 10^6/ul (4.00-5.40); Red Cell Distribution Width 14 % (10.5-15); White Blood Count 7.6 10^3/ul (3.5-10.8)
[2018-02-18 06:52] LABS: EGFR Non-African American 96.5 (>60)
[2018-02-18] MEDS: Albuterol 2.5 MG/3 ML NEB.SOL* (0.083%) INH SCH ×2 (07:06→13:08)
[2018-02-18] MEDS: Mometasone/Formoter 200/5 MDI INH SCH (07:08)
[2018-02-18] MEDS: Multivitamins/Minerals TAB PO SCH (08:31)
[2018-02-18] MEDS: Insulin LISPRO* 1 UNITS UNIT SUBCUT SCH ×3 (08:31→16:07)
[2018-02-18] MEDS: Folic Acid TAB* 1 MG PO SCH (08:31)
[2018-02-18] MEDS ORDERED: Torsemide TAB* 20 MG PO SCH (09:00)
[2018-02-18] MEDS ORDERED: Thiamine TAB* 100 MG TAB PO SCH (09:00)
[2018-02-18] MEDS ORDERED: Diltiazem CD CAP* 180 MG PO SCH (09:00)
[2018-02-18] MEDS ORDERED: Atorvastatin* 40 MG TAB PO SCH (09:00)
[2018-02-18] MEDS: NS 0.9% 1000 ML* 1,000 ML IV SCH (11:40)
[2018-02-18] MEDS ORDERED: Perflutren Lipid Microsphere* 3 ML VIAL ONE (12:35)
[2018-02-18] MEDS ORDERED: cefTRIAXone VIAL(*) 1,000 MG VIAL IVPB SCH (15:00)
[2018-02-18 16:06] VITALS: BP 142/73
[2018-02-18] MEDS ORDERED: Azithromycin IV(*) 500 MG in NS 0.9% 250 ML* 250 ML IVPB SCH (16:30)
--- NOTE | 2018-02-18 16:51 | ECHO ---
Patient: BHARAT MARRERO [facility] Rec#: [id number] : 1965 Date: 02/18/2018 Age: 52y Height: 178 cm / 70.1 in Weight: 159 kg / 350.4 lbs Sex: M BSA: 2.65 Room#: [facility] Admit Date#: 02/17/2018 Type: Inpatient Referring: Maddison Hernandez MD Reading: Estevan Blake DO Elevator Service Mechanic: Merlene Mauro RDCS,RDMS CC: Qasim Reaves Transthoracic Echocardiogram Indication: CHF BP: 136/72 HR: 71 Rhythm: A-Fib Findings History: CAD, AFIB, CHF, HTN, HLD, DM, smoker Technical Comments: The study quality is poor. The study is technically limited due to patient body habitus. Left Ventricle: The left ventricular chamber size is normal. Mild concentric left ventricular hypertrophy is observed. There is global hypokinesis of the left ventricle with minor regional variation. There is mildly decreased left ventricular systolic function. The estimated ejection fraction is 40-45%. The assessment of diastolic function is non-diagnostic. Left Atrium: The left atrium is not well visualized. Right Ventricle: The right ventricle is not well visualized. Right Atrium: The right atrium is not well visualized. Aortic Valve: The aortic valve structure is not well visualized. Systolic excursion of the aortic valve is normal. There is no evidence of aortic regurgitation. There is no evidence of aortic stenosis. Mitral Valve: The mitral valve structure is not well visualized. There is a trace of mitral regurgitation. There is no evidence of mitral stenosis. Tricuspid Valve: The tricuspid valve structure is not well visualized. The tricuspid valve leaflets are not thickened. There is trace tricuspid regurgitation. No pulmonary hypertension is noted. Pulmonic Valve: The pulmonic valve structure is not well visualized. There is no evidence of pulmonic regurgitation. There is no pulmonic stenosis. Pericardium: There is no significant pericardial effusion. Aorta: The aortic root appears normal. The aortic arch is not well visualized. Pulmonary Artery: The main pulmonary artery is not well visualized. Venous: The inferior vena cava is dilated. Contrast: Definity was used to optimize study. A total of 3 ml was used. Conclusions The left ventricular chamber size is normal. Mild concentric left ventricular hypertrophy is observed. There is global hypokinesis of the left ventricle with minor regional variation. There is mildly decreased left ventricular systolic function. The estimated ejection fraction is 40-45%. The left atrium is not well visualized, it appears severely dilated in parasternal long axis imaging The right ventricle is not well visualized. No significant valvular abnormalities noted on technically difficult imaging No pulmonary hypertension is noted (may be underestimated) Definity used to optimize study Patient in atrial fibrillation at time of study None prior for comparison at time of interpretation Measurements Name Value Normal Range RVIDd (AP) 2D 4.9 cm (0.9 - 2.6) IVSd (2D) 1.3 cm (0.6 - 1) LVPWd (2D) 1.3 cm (0.6 - 1) LVIDd (2D) 5.1 cm (3.6 - 5.4) Aortic Annulus 2.4 cm (1.4 - 2.6) Ao root diameter (2D) 3.1 cm (2.1 - 3.5) Ascending Ao 3.2 cm (2.1 - 3.4) LAd ISD 4CH 6.3 cm (2.9 - 5.3) LA ISD 4CH W 5.1 cm (2.5 - 4.5) Name Value Normal Range LA ESV BP (A/L) index 39 ml/m2 - Name Value Normal Range MV E-wave Vmax 1.2 m/sec - MV deceleration time 119 msec - LV lateral e' Vmax 0.11 m/sec - LV E:e' lateral ratio 10.5 ratio - Name Value Normal Range AV Vmax 1.1 m/sec - AV peak gradient 5 mmHg - LVOT Vmax 0.9 m/sec - LVOT peak gradient 3.2 mmHg - Name Value Normal Range MV Vmax 1.2 m/sec - MV VTI 29 cm - MV peak gradient 6 mmHg - MV mean gradient 3 mmHg - MV PHT 110 msec - MVA (PHT) 2 cm2 - Name Value Normal Range TR Vmax 2.3 m/sec - TR peak gradient 21 mmHg - RAP 8 mmHg - RVSP 29 mmHg - IVC diameter 3.2 cm - Name Value Normal Range PV Vmax 0.7 m/sec - PV peak gradient 2 mmHg -
--- NOTE | 2018-02-18 20:26 | CONS ---
PULMONARY CONSULTATION REPORT: DATE OF CONSULT: 02/18/18 CONSULTATION REQUESTED BY: Dr. Maddison Rocha. REASON FOR CONSULT: Evaluation of hypoxemic respiratory failure. HISTORY OF PRESENT ILLNESS: 52-year-old male with history of COPD; hypertension ; dyslipidemia; current smoker with morbid obesity; also with history of coronary artery disease; atrial fibrillation; chronic lower extremity edema; obstructive sleep apnea, on CPAP at home. The patient presents for evaluation of worsening shortness of breath. The patient has been having worsening shortness of breath for about a week. He was seen by his primary care physician , was prescribed nebulizer, given prednisone. He was feeling better, traveled to [place] to spend a weekend. He returned back because of his significant other having issues with hip pain and was in the emergency room with her. He went home, woke up with worsening shortness of breath and could not get air in and decided to come in to the emergency room. His O2 sat was 87% on room air. He desaturated further when he attempted to ambulate and was initiated on O2 supplementation. He is currently on 5 L. The patient is requesting to be discharged to home today. Pulmonary consultation was requested for evaluation of hypoxemic and hypercapnic respiratory failure. The patient was seen and examined at bedside. He was comfortably lying in bed with his CPAP on. The patient denies shortness of breath. He denies chest pain, palpitations, dizziness, fevers, or chills. Reports intermittent cough productive of clear phlegm. He is requesting to be discharged home. He did not appear to be in any distress. He is being treated for acute COPD exacerbation secondary to bronchitis and also possible diastolic CHF. PAST MEDICAL HISTORY: 1. Atrial fibrillation. 2. Hypertension. 3. COPD with ongoing tobacco abuse. 4. Dyslipidemia. 5. Morbid obesity. 6. Peripheral vascular disease. 7. Chronic lymph edema. 8. Coronary artery disease. 9. Obstructive sleep apnea. 10. Type 2 diabetes. PAST SURGICAL HISTORY: 1. Ventral hernia repair. 2. Multiple surgeries on fingers and toes for webbed fingers and toes. 3. 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 MEDICATIONS: 1. Atorvastatin. 2. Symbicort 2 puffs b.i.d. recently started. 3. Cardizem 360 mg p.o. daily. 4. Glyburide/metformin 5/500 daily. 5. Hydroxyzine for itching. 6. Levothyroxine 150 mcg. 7. Montelukast 10 mg at bedtime. 8. Prednisone taper. 9. Terbinafine 250 mg daily. 10. Torsemide 10 mg daily. ALLERGIES: LATEX. FAMILY HISTORY: Mother has diabetes. Sister has renal disease. SOCIAL HISTORY: Smoker, has been smoking since the age of 14. Smokes about a pack a day. Drinks beer daily. Denies illicit drug abuse. Surrogate decision maker is girlfriend. REVIEW OF SYSTEMS: All 14 systems reviewed and as per HPI. PHYSICAL EXAM: Morbidly obese male, in no apparent distress. Vital Signs: Temperature 98.6, pulse 73 beats per minute, respiratory rate 16 per minute, O2 sat 95% on 5 L. HEENT: Pupils are equal and reactive to light, Mallampati class 4 airway, large neck circumference. Cardiovascular: S1, S2 present, irregular. Lungs: Diminished air entry bilaterally. No significant wheeze. Extremities: Chronic lymph edema and chronic skin changes. Neurologic: Alert, awake, and oriented x3. No focal deficits. Skin: No rash or bruises. DIAGNOSTIC STUDIES/LAB DATA: WBC count 7.6; hemoglobin 12.3; hematocrit 37; platelet count 219. Blood gas analysis on admission showed compensated respiratory acidosis. PCO2 was 44. Sodium 134, potassium 4.1, chloride 103, bicarb 27, BUN 16, creatinine 0.83, glucose 280. Hemoglobin A1c elevated at 7.4. Lactic acid 2.4 on admission. Troponin within normal limits. Influenza A and B negative. CT of the chest performed in the emergency room for evaluation of pulmonary embolism. I have personally reviewed the CT of the chest. No obvious filling defects were noted in the pulmonary vessels. Small bilateral pleural effusions with basilar atelectasis was noted. The patient noted to have fibrotic changes subpleurally in the upper lobes and also in the lower lung zones. Evidence of mild emphysematous changes also noted. The patient with prominent lymph nodes. EKG showed evidence of irregular rhythm with evidence of atrial fibrillation, rate controlled. IMPRESSION AND RECOMMENDATIONS: 52-year-old male morbidly obese, current smoker admitted with worsening shortness of breath. 1. Acute bronchitis/acute chronic obstructive pulmonary disease exacerbation. 2. Possible fluid overload likely from diastolic congestive heart failure. Echocardiogram ordered and is pending. 3. Hypoxemic respiratory failure. 4. Chronic hypercapnia with compensated respiratory acidosis. 5. Morbid obesity. 6. Obstructive sleep apnea and possible obesity hypoventilation syndrome. The patient does not have significant wheeze on auscultation today. He has responded to diuresis. Will need to perform ambulatory O2 evaluation to assess oxygenation needs. The patient is requesting to be discharged home. Would recommend discharging on Levaquin to complete 7-day course. Would order nebulizer machine through home care company. O2 requirements to be assessed and setup on O2 at home. The patient with poor diabetes control, sugars might be increased on prednisone. He understands importance of close monitoring of his blood sugars. Would send him on prednisone taper starting at 60 mg to be tapered over a week. Nebulizer technique was discussed. He was recently started on Symbicort. He would also benefit from anticholinergics. He would need PFTs as outpatient. He is compliant with CPAP and reports benefit from usage. He will continue to use oxygen along with CPAP at night and with daytime naps. The patient does not follow up with a sas programmer analyst as outpatient. I have given him option of following with me. He does have evidence of mild fibrotic changes at bases and prominent mediastinal and hilar adenopathy- ? Sarcoidosis Will need to be evaluated as outpatient for possible sarcoidosis. Above findings and plan for a followup was discussed in detail with the patient. I have also discussed with Lexie Byers NP and keycase assembler. Thank you allowing me to participate in the care of your patient. Will follow up. [id number]/CPS #: [id number] MTDD
--- NOTE | 2018-02-19 09:14 | DS ---
CC: Dr. Jamel Gamez; Dr. Landon.* DISCHARGE SUMMARY: DATE OF ADMISSION: 02/17/18 DATE OF DISCHARGE: 02/18/18 ATTENDING: Dr. Maddison Rocha. MY ATTENDING FOR TODAY: Dr. Mynor Landon.* (DICTATED BY NATALIIA MERCADO NP) PRIMARY CARE PROVIDER: Dr. Jamel Gamez. HOSPITAL COURSE: This is a 52-year-old male patient with a past medical history of COPD, hypertension, hyperlipidemia, peripheral vascular disease, coronary artery disease, obstructive sleep apnea, atrial fibrillation, lymphedema, super morbid obesity. The patient presented to the emergency department with a complaint of shortness of breath. He said approximately a week ago he was seen by Gwen Luna NP at Dr. Gamez's office. He was given at that time a nebulizer and prednisone taper. He started feeling better and then began to have a steady decline again. He came to the emergency department for evaluation as he was acutely short of breath. Initially O2 saturation in the ER had been 87% on room air. He had further desaturation to 79% on room air with ambulation and subsequently was admitted to observation. The patient received supplemental oxygen for what is likely a COPD exacerbation , possibly also with a component of congestive heart failure. The patient was observed on telemetry. He received Lasix IV. He also received Solu-Medrol IV. He was started on inhalers given nicotine replacement and also started on ceftriaxone to cover for any chest infections. The patient was continued on his home medications. He was also placed on a WAM protocol. The patient does admit to daily alcohol use, he was also placed on a WAM, and then for inpatient he was placed on azithromycin 500 mg q.24 hours. The patient did bring his CPAP from home. He continued to use that. He also received some nebulizer treatments which he stated helped. The patient was seen by Dr. Nupur Van today from Pulmonology. The patient stated his desire to go home. Dr. Van after evaluating the patient cleared the patient for discharge. Once he had walking O2 saturations, he did qualify for home O2 as he desatted. His requirement is [address] Van also recommended DuoNeb, continue prednisone taper, change him to Levaquin, nicotine replacement, and continued torsemide. PAST MEDICAL HISTORY: As stated above. DISCHARGE DIAGNOSES: 1. Chronic obstructive pulmonary disease with exacerbation. 2. Acute hypoxic respiratory failure, multifactorial. 3. Likely congestive heart failure. 4. Obstructive sleep apnea, on CPAP. 5. Obesity, hypoventilation syndrome. 6. History of tobacco abuse. 7. History of alcohol use. 8. History of atrial fibrillation, on anticoagulation. 9. Hyperlipidemia. MEDICATIONS FOR DISCHARGE: Include: 1. Glyburide/metformin 1 tab daily. 2. Atorvastatin 40 mg daily. 3. Hydroxyzine 50 mg 4 times a day as needed. 4. Terbinafine 250 mg p.o. daily. 5. Singulair 10 mg in the evening. 6. Levothyroxine 150 mcg daily. 7. Diltiazem 360 mg daily. 8. Symbicort 160/4.5 two puffs inhaled 2 times a day. 9. Prednisone taper 50 mg day 1, decreased by 10 mg q.3 days until complete. Total course 15 days. 10. Levofloxacin 750 mg daily x5 days. 11. Torsemide 20 mg p.o. daily. 12. Thiamine 100 mg p.o. daily. 13. Nicotine patch 21 mg every 24 hours transdermal. 14. Multivitamin with minerals 1 tablet daily. 15. Folic acid 1 mg daily. 16. DuoNeb treatments 1 neb q.6 hours as needed for shortness of breath. DISCHARGE DIET: Recommend low sodium, diabetic, heart healthy. ACTIVITY: As tolerated. FOLLOWUP: The patient was instructed to follow up with Dr. Jamel Gamez in the next 1 to 3 days and also to call Dr. Nupur Van's office for an intake appointment. The patient was discharged in stable condition on home O2 which is being provided by [facility]. The patient states his understanding of his discharge instructions, new medications at discharge, and his followups. TIME SPENT: I have spent approximately 35 minutes on this discharge plan interfacing with the patient, providers involved in his care, and case management. NATALIIA MERCADO, THU [id number]/[facility] #: [id number] YOBANI
== END 2018-02-18 17:24 | disposition home or self-care (01) ==
LOC: ED 13:17 → OBSVTOIN 15:22 → MEDTELE 15:22 → INTOOBSV 15:22 → OBSVTOIN 02-18 11:07
PROVIDERS: ADMIT Internal Medicine; ATTEND Student in an Organized Health Care Education/Training Program
DX: J44.1 Chronic obstructive pulmonary disease with (acute) exacerbation (principal); R09.02 Hypoxemia; I48.91 Unspecified atrial fibrillation; R06.02 Shortness of breath; F17.210 Nicotine dependence, cigarettes, uncomplicated; Z79.01 Long term (current) use of anticoagulants; E78.5 Hyperlipidemia, unspecified; G47.33 Obstructive sleep apnea (adult) (pediatric); I73.9 Peripheral vascular disease, unspecified; E66.01 Morbid (severe) obesity due to excess calories; Z68.43 Body mass index [BMI] 50.0-59.9, adult
CPT/HCPCS: 36415; 71046; 71275; 80048; 80053; 82803; 83036; 83605; 83880; 84484; 85025; 85610; 86140; 93005; 93306; 94640; 94660; 96365; 96366; 96375; 99284; A9270-GY; C8929; G0378; J0456; J0696; J1644; J1940; J2920; J2930; J3411; J3475; Q9967

== ENCOUNTER 2021-04-03 23:48 | Inpatient (IN) ==
[2021-04-03] MEDS ORDERED: methylPREDNISolone 125 mg 2 ML VIAL IV ONE (23:59)
[2021-04-04 00:53] LABS: PCO2 Arterial 35 mmHg (35-45); PO2 Arterial 76 mmHg (80-100)
[2021-04-04 01:20] LABS: ABS Basophils 0.1 10^3/ul (0-0.2); ABS Lymphocytes 0.8 10^3/ul (1.0-4.8); ABS Monocytes 1.4 10^3/ul (0-0.8); Eosinophil % 0.1 %; Hematocrit 43 % (42-52); Hemoglobin 14.7 g/dL (14.0-18.0); Mean Corpuscular HGB Conc 34 g/dL (31-36); Mean Corpuscular Hemoglobin 34 pg (27-31); Mean Corpuscular Volume 98 fL (80-94); Mean Platelet Volume 8.4 fL (7.4-10.4); Nucleated Red Blood Cells % 0.1; Platelet Count 241 10^3/uL (150-450); Red Blood Count 4.38 10^6 /uL (4.18-5.48); Red Cell Distribution Width 15 % (10-15); White Blood Count 19.2 10^3/uL (3.5-10.8)
[2021-04-04 01:28] LABS: Activated Partial Thrombo Time 32.7 seconds (26.0-38.0)
[2021-04-04 01:38] LABS: ALT 33 U/L (7-52); AST 27 U/L (13-39); Albumin 4.4 g/dL (3.2-5.2); Albumin/Globulin Ratio 1.1 (1-3); Alkaline Phosphatase 137 U/L (35-149); Anion Gap 9 mmol/L (2-11); Blood Urea Nitrogen 14 mg/dL (6-24); CO2 Carbon Dioxide 25 mmol/L (22-32); Calcium 9.7 mg/dL (8.6-10.3); Chloride 97 mmol/L (101-111); Creatine Kinase 109 U/L (10-223); Glucose 190 mg/dL (70-100); Potassium 4.6 mmol/L (3.5-5.0); Sodium 131 mmol/L (135-145); Total Protein 8.4 g/dL (6.4-8.9); eGFR CKD-EPI 70.5 (>60)
[2021-04-04 02:02] LABS: Troponin I 0.04 ng/mL (<0.03)
[2021-04-04 02:16] LABS: Urine Appearance Cloudy; Urine Bilirubin Negative (Negative); Urine Blood Negative (Negative); Urine Color Amber; Urine Glucose Negative (Negative); Urine Ketones Trace (Negative); Urine Nitrite Negative (Negative); Urine Protein 1+(30 mg/dL) (Negative); Urine Specific Gravity 1.021 (1.002-1.030); Urine Urobilinogen Negative (Negative)
[2021-04-04] MEDS ORDERED: cefTRIAXone 1 gm/50 mL NS BAG 1 GM/50 ML BAG IV ONE (02:16)
[2021-04-04] MEDS ORDERED: Albuterol/Ipratropium NEB.SOL (2.5/0.5 MG) 3 ML NEB.SOLN INH ONE (02:17)
[2021-04-04 02:32] LABS: Urine Bacteria Absent (Absent); Urine Red Blood Cell Trace(0-2/hpf) (Absent); Urine Squamous Epithelial Cell Present (Absent); Urine White Blood Cell Trace(0-5/hpf) (Absent)
[2021-04-04] MEDS ORDERED: Iodixanol (CONTRAST) 320 MG/ML 100 ML SDV IV ONE (04:29)
[2021-04-04] MEDS ORDERED: Dextrose 50% Syringe 50 ml 25 GM/50 ML SYRINGE IV PUSH PRN (04:47)
[2021-04-04] MEDS ORDERED: Albuterol HFA INHALER 8 gm MDI INH PRN (04:52)
[2021-04-04] MEDS ORDERED: Ondansetron 4 mg VIAL 2 MG/ML 2 ml VIAL IV PRN (05:06)
[2021-04-04] MEDS: Azithromycin 500 mg/250 ml NS 500 MG/250 ML BAG IVPB SCH (06:40)
[2021-04-04] MEDS ORDERED: Albuterol/Ipratropium NEB.SOL (2.5/0.5 MG) 3 ML NEB.SOLN INH SCH (07:00)
[2021-04-04 07:10] LABS: Troponin I 0.05 ng/mL (<0.03)
[2021-04-04] MEDS: methylPREDNISolone SOD 40 mg/ml 1 ml VIAL IV SCH ×3 (08:41→23:16)
[2021-04-04] MEDS ORDERED: Budesonide/Formote 160/4.5(NF) MDI INH SCH (09:00)
[2021-04-04] MEDS ORDERED: Furosemide 40 mg/4 ml IV VIAL IV ONE (10:17)
[2021-04-04 10:51] LABS: Troponin I 0.03 ng/mL (<0.03)
[2021-04-04] MEDS: Albuterol HFA INHALER 8 gm MDI INH SCH ×3 (11:11→18:46)
[2021-04-04] MEDS ORDERED: Perflutren Lipid Microsphere 3 ML VIAL ONE (11:13)
[2021-04-05] MEDS ORDERED: cefTRIAXone 1 gm/50 mL NS BAG 1 GM/50 ML BAG IVPB SCH (02:00)
[2021-04-05 04:45] LABS: ABS Lymphocytes 0.8 10^3/ul (1.0-4.8); ABS Monocytes 0.5 10^3/ul (0-0.8); ABS Neutrophils 13.3 10^3/ul (1.5-7.7); Hematocrit 39 % (42-52); Hemoglobin 13.3 g/dL (14.0-18.0); Lymphocyte % 5.7 %; Mean Corpuscular HGB Conc 34 g/dL (31-36); Mean Corpuscular Hemoglobin 34 pg (27-31); Mean Corpuscular Volume 99 fL (80-94); Mean Platelet Volume 8.5 fL (7.4-10.4); Platelet Count 214 10^3/uL (150-450); Red Blood Count 3.97 10^6 /uL (4.18-5.48); Red Cell Distribution Width 14 % (10-15); White Blood Count 14.7 10^3/uL (3.5-10.8)
[2021-04-05 04:59] LABS: Calcium 9.4 mg/dL (8.6-10.3); Magnesium 2.2 mg/dL (1.9-2.7); Phosphorus 3.8 mg/dL (2.5-5.0); eGFR CKD-EPI 93.4 (>60)
[2021-04-05 05:00] LABS: Potassium 5.1 mmol/L (3.5-5.0)
[2021-04-05] MEDS: Azithromycin 500 mg/250 ml NS 500 MG/250 ML BAG IVPB SCH (05:08)
[2021-04-05] MEDS: Albuterol HFA INHALER 8 gm MDI INH SCH ×2 (07:11→10:58)
[2021-04-05] MEDS: methylPREDNISolone SOD 40 mg/ml 1 ml VIAL IV SCH (08:01)
[2021-04-05] MEDS ORDERED: Furosemide 20 mg/2 ml IV VIAL IV ONE (08:17)
[2021-04-05 12:33] VITALS: BP 153/85
== END 2021-04-05 13:55 | disposition left against medical advice (07) | DRG 720 ==
LOC: ED 23:48 → EDHOLD 04-04 05:33 → SUATTDRO 04-04 05:33 → ICU 04-04 08:16
PROVIDERS: ADMIT Hospitalist; ATTEND Internal Medicine